=== PATIENT | male | born 1980 | race Caucasian/White ===

== ENCOUNTER 2021-09-14 12:35 | Observation (INO) | payer OTHER ==
--- OUTSIDE RECORDS SUMMARY | 2021-09-14 12:41 | XMS REPORT | Continuity of Care Document ---
:1980 Author Organization [facility] t Address [address] [place] [address] Care Team Providers Name Role Phone [facility], [facility] Primary Care Physician Un available Duyen LOGAN Attending Clinician Unavailable Doreen THAKKAR S Attending Clinician Elvin LANDA, B Attending Clinician Unavailable VIANEY Attending Clinician Unavailable Rey Blas Attending Clinician Vianey THAKKAR Attending Clinician Doctor Unassigned, Name Attending Clinician Unavailable Suraj Tamez NP Attending Clinician Suraj TAMEZ Attending Clinician Unavailable Tommy Dodson Attending Clinician Ludwin THAKKAR Attending Clinician Tommy MONTIEL Attending Clinician Unavailable Sander THAKKAR Attending Clinician SANDER Attending Clinician Unavailable VIANEY Admitting Clinician Unavailable Vianey THAKKAR Admitting Clinician Ludwin THAKKAR Admitting Clinician SANDER Admitting Clinician Unavailable Payers Payer Name Policy Type Policy Number Effective Date Expiration Date Duyen [facility] [id number] 2021 00:00:00 Problems Condition Condition Condition Status Onset Resolution Last Treating Co mments Source Name Details Category Date Date Treatment Clinician Date Hypertensi Hypertensi Disease Active U nivers ve urgency ve urgency 1-18 it y of 00:00: [address] Essential Essential Disease Active Uni vers hypertensi hypertensi 9-13 it y of on on 00:00: [place] [id number] Medical [place] Dyslipidem Dyslipidem Disease Active U nivers ia ia 9-13 ity of 00:00: [place] [facility] Coronary Coronary Disease Active Unive rs artery artery 9-13 ity of disease disease 00:00: [place] involving involving 00 [facility] coronary 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 Chest pain Chest pain Disease Active U nivers in adult in adult 05-03 ity of 00:00: [place] [facility] Obesity Obesity Disease Active Univers (BMI (BMI 3-17 ity of 30-39.9) 30-39.9) 00:00: [place] 00 Medical [place] Chest pain Chest pain Disease Active U nivers 7-08 ity of 00:00: [address] Allergies, Adverse Reactions, Alerts Allergy Allergy Status Severity Reaction(s) Onset Inactive Treating Comm ents Source Name Type Date Date Clinician NO KNOWN Drug Active Univers ALLERGIE Class ity of S [facility] Social History Social Habit Start Date Stop Date Quantity Comments Source Exposure to Not sure [facility] SARS-CoV-2 [facility] [place] [facility] (event) Branch Education 2021-09-11 2021-09-11 14 University of 00:00:00 00:00:00 [facility] Alcohol intake 2021-09-11 2021-09-11 Current [facility] 00:00:00 00:00:00 non-drinker of [facility] alcohol Branch (finding) Tobacco use and 2017-11-08 2017-11-08 Current user Univers ity of exposure 00:00:00 00:00:00 [facility] Sex Ass[birth year] At [birth year] Universit y of 00:00:00 00:00:00 [facility] Smoking Status Start Date Stop Date Source Current every day smoker 2017-11-08 00:00:00 Uni versity of [facility] Medications Ordered Filled Start Stop Current Ordering Indication Dosage Frequency Signature Comments Components Source Medication Medication Date Date Medication? Clinician (SIG) Name Name simvastatin Yes 80mg 80 mg, Univ ers (ZOCOR) 1-19 Oral, QHS, ity of tablet 80 03:00: [place] mg 00 on [facility] 09/11/21 at [place] 2100, Until Discontinu ed, Routine aspirin 81 2021- Yes [id number] 162mg Take 2 Univers mg chewable 09-12 tablets by i ty of tablet 00:00: 05:59 mouth [place] 00 :00 daily for Medical 30 days. [place] lisinopriL 2021- Yes [id number] 2.5mg Take 1 Univers 2.5 mg 09-12 tablet by ity of tablet 00:00: 05:59 mouth [place] 00 :00 daily for Medical 30 days. [place] metoprolol 2021- Yes [id number] 12.5mg Take 0.5 Univers succinate 09-12 tablets by ity of XL 25 mg 24 00:00: 05:59 [place] hr tablet 00 :00 daily for Medic al 30 days. [place] aspirin 81 2021- Yes [id number] 162mg Take 2 Univers mg chewable 09-12 tablets by i ty of tablet 00:00: 05:59 mouth [place] 00 :00 daily for Medical 30 days. [place] lisinopriL 2021- Yes [id number] 2.5mg Take 1 Univers 2.5 mg 09-12 tablet by ity of tablet 00:00: 05:59 mouth [place] 00 :00 daily for Medical 30 days. [place] metoprolol 2021- Yes [id number] 12.5mg Take 0.5 Univers succinate 09-12 tablets by ity of XL 25 mg 24 00:00: 05:59 [place] hr tablet 00 :00 daily for Medic al 30 days. [place] aspirin 81 2021- Yes [id number] 162mg Take 2 Univers mg chewable 09-12 tablets by i ty of tablet 00:00: 05:59 mouth [place] 00 :00 daily for Medical 30 days. [place] lisinopriL 2021- Yes [id number] 2.5mg Take 1 Univers 2.5 mg 09-12 tablet by ity of tablet 00:00: 05:59 mouth [place] 00 :00 daily for Medical 30 days. Branch metoprolol 2021- Yes [id number] 12.5mg Take 0.5 Univers succinate 09-12-19 tablets by ity of XL 25 mg 24 00:00: 05:59 [place] hr tablet 00 :00 daily for Medic al 30 days. Branch sulfur 2021- No [id number] 5mL 5 mL, Unive rs hexafluorid 09-11 Intravenou i ty of e microsphr 21:30: 21:30 s, ONCE, 1 [place] (LUMASON) 00 :00 dose, On Medica l injection 5 Tue Branch mL 09/11/21 at 1530, Routine
membership correspondent approving Restricted medication : BRITTANY BAUTISTA simvastatin Yes 80mg Take 80 mg Univers 80 mg 18 by mouth ity of tablet 17:07: at [place] 21 bedtime. Medical Branch simvastatin Yes 80mg Take 80 mg Univers 80 mg -18 by mouth ity of tablet 17:07: at [place] 21 bedtime. Medical Branch simvastatin Yes 80mg Take 80 mg Univers 80 mg -18 by mouth ity of tablet 17:07: at [place] 21 bedtime. Medical Branch aspirin 2021- No 325mg Take 325 Univ ers (INGRID 18 -18 mg by ity of ASPIRIN) 16:00: 00:00 mouth [place] 325 mg 14 :00 daily. Medical tablet Branch clopidogreL 2021- No 75mg Take 75 mg Univers 75 mg 18 18 by mouth ity of tablet 16:00: 00:00 daily. [place] 14 :00 Medical Branch lisinopriL 2021- No 2.5mg Take 2.5 U nivers 2.5 mg -18 -18 mg by ity of tablet 16:00: 00:00 mouth [place] 14 :00 daily. Medical Branch metoprolol 2021- No 12.5mg Take 12.5 Univers succinate -18 -18 mg by ity of XL 25 mg 24 16:00: 00:00 [place] hr tablet 14 :00 daily. Medical Branch metoprolol Yes 12.5mg 12.5 mg, U nivers succinate 18 Oral, ity of XL (TOPROL 15:00: DAILY, [place] XL) tablet 00 First dose Med ical 12.5 mg on [facility] 09/11/21 at 0900, Until Discontinu ed, Routine lisinopriL 2021-0 Yes 2.5mg 2.5 mg, Uni vers (PRINIVIL,Z 18 Oral, ity of ESTRIL) 15:00: DAILY, [place] tablet 2.5 00 First dose Med ical mg on [facility] 09/11/21 at 0900, Until Discontinu ed, Routine clopidogreL 2021-0 Yes 75mg 75 mg, Univ ers (PLAVIX) 18 Oral, ity of tablet 75 15:00: DAILY, [place] mg 00 First dose Medical on [facility] 09/11/21 at 0900, Until Discontinu ed, Routine enoxaparin 2021-0 Yes 40mg 40 mg, Unive rs (LOVENOX) 09-11 Subcutaneo ity of injection 15:00: us, DAILY, [place] 40 mg 00 First dose Medical on [facility] 09/11/21 at 0900, Until Discontinu ed, Routine aspirin 2021-0 Yes 162mg 162 mg, Univer s chewable 09-11 Oral, ity of tablet 162 15:00: DAILY, [place] mg 00 First dose Medical on [facility] 09/11/21 at 0900, Until Discontinu ed, Routine cyclobenzap 2021-0 Yes 10mg 10 mg, Univ ers rine 09-11 Oral, ity of (FLEXERIL) 08:50: TIDPRN, [place] tablet 10 48 Starting Medica l mg on [facility] 09/11/21 at 0250, Until Discontinu ed, Routine, Muscle Spasms morpHINE 2021-0 2021- Yes 4mg 4 mg, Slow Un ana injection 4 09-1119 IV Push, ity of mg 08:47: 05:47 Q4HPRN, [place] 48 :57 Starting Medical on [facility] 09/11/21 at 0247, Until Fri09/11/21 at 2347, Routine, Pain (scale 7-10), Chest pain nitroglycer 2021-0 Yes .4mg 0.4 mg, Uni vers in 09-11 Sublingual ity of (NITROSTAT) 05:50: , Q5MIN [place] sublingual 28 PRN, Medical tablet 0.4 Starting Branc h mg on Fri09/10/21 at 2350, Until Discontinu ed, Routine, Chest pain ondansetron Yes 4mg 4 mg, Slow Univers (ZOFRAN 09-11 IV Push, ity of (PF)) 05:49: Q6HPRN, [place] injection 4 12 Starting Medi hakan mg on Fri Branch 09/10/21 at 2349, Until Discontinu ed, Routine, Nausea and Vomiting (N/V) traMADoL 2021- Yes 50mg 50 mg, Univer s (ULTRAM) 09-11 Oral, ity of tablet 50 05:48: 05:47 Q8HPRN, [place] mg 54 :54 Starting Medical on Fri Branch 09/10/21 at 2348, Until 09/12/21 at 2347, Routine, Pain (scale 4-6) acetaminoph Yes 650mg 650 mg, Un ana en 09-11 Oral, ity of (TYLENOL) 05:48: Q6HPRN, [place] tablet 650 53 Starting Medic al mg on Fri Branch 09/10/21 at 2348, Until Discontinu ed, Routine, Pain (scale 1-3) iopamidol 0 2021- No 100mL 100 mL, Uni vers (ISOVUE 09-11 Intravenou ity o f 370-500 mL) 03:09: 03:09 s, ONCE, 1 [place] injection 00 :00 dose, On Medica l 100 mL [facility] Branch 09/10/21 at 2130, Routine morpHINE 2021- No 4mg 4 mg, Slow Un ana injection 4 09-11 IV Push, ity of mg 00:30: 23:34 ONCE, 1 [place] 00 :00 dose, On Medical [facility] Branch 09/10/21 at 1830, STAT nitroglycer Yes [id number] .4mg Place 1 Univers in 0.4 mg 09-11 tablet ity of sublingual 00:00: under the [place] tablet 00 tongue Medical every 5 Branch (five) minutes as needed for Chest pain. nitroglycer 2022-[id number] 1 Univers in 0.4 mg 1-18 tablet ity of sublingual 00:00: under the [place] tablet 00 tongue Medical every 5 Branch (five) minutes as needed for Chest pain. nitroglycer 2021-[id number] 1 Univers in 0.4 mg 1-18 tablet ity of sublingual 00:00: under the [place] tablet 00 tongue Medical every 5 Branch (five) minutes as needed for Chest pain. clopidogreL 2021- Yes [id number] 75mg Take 1 Univers 75 mg 1-18 -18 tablet by ity of tablet 00:00: 05:59 mouth [place] 00 :00 daily for Medical 30 days. Branch clopidogreL 2021- Yes [id number] 75mg Take 1 Univers 75 mg 1-18 -18 tablet by ity of tablet 00:00: 05:59 mouth [place] 00 :00 daily for Medical 30 days. Branch clopidogreL 2021- Yes [id number] 75mg Take 1 Univers 75 mg 1-18 -18 tablet by ity of tablet 00:00: 05:59 mouth [place] 00 :00 daily for Medical 30 days. Branch NaCl 0.9% 2021- No 1000mL at 999 Uni vers (NS) bolus 09-10 mL/hr, ity of infusion 23:45: 04:38 1,000 mL, [place] as 1,000 mL 00 :00 IV Medical Infusion, Branch ONCE, 1 dose, On Fri09/10/21 at 1745, RAJ nitroglycer 2021- No .4mg 0.4 mg, Un ana in 09-10 Sublingual ity of (NITROSTAT) 23:28: 06:25 , Q5MIN [place] sublingual 00 :50 PRN, 3 Medical tablet 0.4 doses, Branch mg Starting on Fri09/10/21 at 1728, Until Fri09/11/21 at 0025, RAJ, Chest pain dexamethaso 2020- No 10mg 10 mg, IV Univers ne 08-26 Push, ity of (DECADRON 03:00: 02:03 ONCE, 1 [place] PHOSPHATE) 00 :00 dose, Fri Medi hakan injection 08/25/20 at Bran h 10 mg 2100, STAT NaCl 0.9% 2020- No 1000mL at 1,000 U nivers (NS) IV 08-26 mL/hr, ity of infusion 03:00: 04:06 Intravenou [place] 1,000 mL 00 :00 s, ONCE, 1 Medic al dose, Fri Branch 08/25/20 at 2100, RAJ diphenhydrA 2020- No 25mg 25 mg, Uni vers MINE 08-26 Slow IV ity of (BENADRYL) 03:00: 02:03 Push, [place] injection 00 :00 ONCE, 1 Medical 25 mg dose, Fri Branch 08/25/20 at 2100, STAT metoclopram 2020- No 10mg 10 mg, Uni vers nicole HCl 08-26 Slow IV ity of (REGLAN) 03:00: 02:03 Push, [place] injection 00 :00 ONCE, 1 Medical 10 mg dose, Fri Branch 08/25/20 at 2100, RAJ ketorolac 2020- No 30mg 30 mg, Unive rs (TORADOL) 08-26 Slow IV ity of injection 03:00: 02:02 Push, [place] 30 mg 00 :00 ONCE, 1 Medical dose, Fri Branch 08/25/20 at 2100, Routine
membership correspondent approving Restricted medication : LAMONT TAMEZ methylPREDN Yes [id number] Take by [place] [id number] 08-26 mouth ity of mg tablets 00:00: [place]-INSTRU [place] 00 CTIONS. Medical follow Branch package directions methylPREDN Yes [id number] Take by [place] [id number] 08-26 mouth ity of mg tablets 00:00: [place]-INSTRU [place] 00 CTIONS. Medical follow Branch package directions methylPREDN 2020-0 202- No [id number] Take by [place] [id number] 08-2618 mouth ity of mg tablets 00:00: 00:00 SEE-INSTRU [place] 00 :00 CTIONS. Medical follow Branch package directions butalbital- Yes [id number] 1{tbl} Take [facility] acetaminoph 08-25 tablet by ity of en-caff 00:00: mouth [place] 50-325-40 00 every 4 Medical mg tablet (four) Branch hours as needed for Pain (scale 4-6). butalbital- Yes [id number] 1{tbl} Take 1 Univers acetaminoph 1-01 tablet by ity of en-caff 00:00: mouth [place] 50-325-40 00 every 4 Medical mg tablet (four) Branch hours as needed for Pain (scale 4-6). butalbital- 2021- No [id number] 1{tbl} Take 1 Univers acetaminoph 1-01 -18 tablet by it y of en-caff 00:00: 00:00 mouth [place] 50-325-40 00 :00 every 4 Medical mg tablet (four) Branch hours as needed for Pain (scale 4-6). valACYclovi 2020- No [id number] 1g Take 1 Univers r 1 gram 08-25 tablet by ity o f tablet 00:00: 05:59 mouth 2 [place] 00 :00 (two) Medical times Branch daily for 7 days. METOPROLOL 2019-0 2020- No Take by Un ana TARTRATE 05-04 mouth. ity of ORAL 21:35: 00:00 [place] 46 :00 Medical Branch nitroglycer 2019- 2020- No .4mg Place 0.4 Univers in 05-0410 mg under ity of (NITROSTAT) 21:35: 00:00 the tongue [place] 0.4 mg 46 :00 every 5 Medical sublingual (five) Branch tablet minutes as needed for Chest pain. metoprolol 2019- 2020- No 12.5mg Take 12.5 Univers succinate 05-04-10 mg by ity of XL (TOPROL 21:35: 00:00 mouth with [place] XL) 25 mg 46 :00 evening Medical 24 hr meal. Branch tablet ezetimibe 2019-2019- No 10mg Take 10 mg U nivers (ZETIA) 10 05-0410 by mouth ity of mg tablet 21:35: 00:00 with [place] 46 :00 evening Medical meal. Branch lisinopril 2019- No 5mg Take 5 mg U nivers 5 mg tablet 05-04 by mouth ity of 21:35: 00:00 with [place] 46 :00 evening Medical meal. Branch EVOLOCUMAB 2020-0 2020- No inject Univ ers (REPATHA 05-04 under the ity o f PUSHTRONEX 21:35: 00:00 skin. [facility]) 46 :00 Indication Medical s: TAKES Branch BIWEEKLY-N OT SURE OF THE DOSE aspirin 81 2020-0 2020- No 81mg Take 81 mg Univers mg chewable 05-04 by mouth ity of tablet 21:35: 00:00 with [place] 46 :00 evening Medical meal. Branch tc 2020-0 2020- No 42.7mCi 42.7 Univers 99m-tetrofo 05-04 millicurie i ty of [facility] 19:45: 18:40 , [place] ([facility]) 00 :00 Intravenou Medi hakan injection s, ONCE, 1 Bran ch 42.7 dose, [facility] 05/[facility]/20 at 1445, Routine Regadenoson 2020-0 2020- No PRN, Unive rs (LEXISCAN) 05-04 Starting ity of injection 18:42: 18:42 [facility] 05 :05 05/04/20 at Medical 1342, Branch Until [facility] 05/04/20 at 1342, Routine tc 2020-0 2020- No 16.5mCi 16.5 Univers 99m-tetrofo 05-04 millicurie i ty of [facility] 18:15: 17:00 , [place] ([facility]) 00 :00 Intravenou Medi hakan injection s, ONCE, 1 Bran ch 16.5 dose, [facility] 05/04/20 at 1315, Routine enoxaparin 2020-0 Yes 40mg 40 mg, Unive rs (LOVENOX) 05-04 Subcutaneo ity of injection 14:00: us, DAILY, [place] 40 mg 00 First dose Medical on [facility] 05/04/20 at 0900, Until Discontinu ed, Routine aspirin 2020-0 Yes 81mg 81 mg, Univers chewable 05-04 Oral, QAM ity of tablet 81 13:00: WITH [place] mg 00 BREAKFAST, Medical First dose Branch on [facility] 05/04/20 at 0800, Until Discontinu ed, Routine docusate 2020-0 Yes 100mg 100 mg, Unive rs (COLACE) 9- Oral, BID, ity o f capsule 100 13:00: First dose [place] mg 00 on [facility] 05/04/20 at Branch 0800, Until Discontinu ed, Routine aspirin 2020-0 2020- No 325mg 325 mg, Unive rs E.C. 05-04 Oral, ity of (ECOTRIN) 06:00: 05:18 ONCE, 1 [place] tablet 325 00 :00 dose, [facility] Medi hakan mg 05/04/20 at Branch 0100, RAJ atorvastati 2020-0 Yes 40mg 40 mg, Univ ers n (LIPITOR) 9-10 Oral, QHS, it y of tablet 40 05:00: First dose [place] mg 00 on [facility] 05/04/20 at Branch 0000, Until Discontinu ed, Routine clopidogreL 2020-0 Yes 75mg 75 mg, Univ ers (PLAVIX) - Oral, ity of tablet 75 05:00: DAILY, [place] mg 00 First dose Medical on [facility] 05/04/20 at 0000, Until Discontinu ed, Routine metoprolol 2020-0 2020- No 12.5mg 12.5 mg, Univers succinate 05-04 Oral, QPM, ity of XL (TOPROL 05:00: 13:56 First dose [place] XL) tablet 00 :12 on [facility] 12.5 mg 05/04/20 at Branch 0000, Until Discontinu ed, Routine traMADoL 2020-0 Yes 50mg 50 mg, Univers (ULTRAM) -10 Oral, ity of tablet 50 04:51: Q8HPRN, [place] mg 13 Starting Medical 05/03/20 Branch at 2351, Until Discontinu ed, Routine, Pain (scale 4-6) nitroglycer 2020-0 Yes .4mg 0.4 mg, Uni vers in 05-04 Sublingual ity of (NITROSTAT) 04:51: , Q5MIN [place] sublingual 09 PRN, Medical tablet 0.4 Starting Branc h mg 05/03/20 at 2351, Until Discontinu ed, Routine, Chest pain ondansetron 2020-0 Yes 4mg 4 mg, Slow Univers (ZOFRAN 9-10 IV Push, ity of (PF)) 04:49: Q6HPRN, [place] injection 4 31 Starting Medi hakan mg Fri05/03/20 Branch at 2349, Until Discontinu ed, Routine, Nausea and Vomiting (N/V) ketorolac 2019-2019- No 15mg 15 mg, Unive rs (TORADOL) 05-04 09-10 Slow IV ity of injection 02:15: 01:10 Push, [place] 15 mg 00 :00 ONCE, 1 Medical dose, Fri Branch 05/03/20 at 2115, RAJ
Fa culty member approving Restricted medication : MONTIELAMAURY R nitroglycer 2019-[id number] 1 Univers in 0.4 mg 9-10 tablet ity of sublingual 00:00: under the [place] tablet 00 tongue Medical every 5 Branch (five) minutes as needed for Chest pain. nitroglycer 2020-[id number] 1 Univers in 0.4 mg 9-10 tablet ity of sublingual 00:00: under the [place] tablet 00 tongue Medical every 5 Branch (five) minutes as needed for Chest pain. nitroglycer 2020-[id number] 1 Univers in 0.4 mg 9-10 tablet ity of sublingual 00:00: under the [place] tablet 00 tongue Medical every 5 Branch (five) minutes as needed for Chest pain. nitroglycer 2019-2021- No [id number] .4mg Place 1 Univers in 0.4 mg 9-10 01-18 tablet ity of sublingual 00:00: 00:00 under the [place] tablet 00 :00 tongue Medical every 5 Branch (five) minutes as needed for Chest pain. aspirin 81 2019- 2020- No [id number] 81mg Take 1 Univers mg chewable 9-10 10-11 tablet by it y of tablet 00:00: 04:59 mouth [place] 00 :00 daily for Medical 30 days. Branch clopidogreL 2019-0 2020- No [id number] 75mg Take 1 Univers (PLAVIX) 75 9-10 10-11 tablet by it y of mg tablet 00:00: 04:59 mouth [place] 00 :00 daily for Medical 30 days. Branch metoprolol 2019-0 2020- No [id number] 25mg Take 1 Univers tartrate 25 9-10 10-11 tablet by it y of mg tablet 00:00: 04:59 mouth 2 [place] 00 :00 (two) Medical times Branch daily for 30 days. lisinopriL 2019- 2020- No [id number] 5mg Take 1 Univers 5 mg tablet 9-10 10-11 tablet by it y of 00:00: 04:59 mouth with [place] 00 :00 evening Medical meal for Branch 30 days. ezetimibe 2019- 2020- No [id number] 10mg Take 1 U nivers (ZETIA) 10 9-10 10-11 tablet by ity of mg tablet 00:00: 04:59 mouth [place] 00 :00 daily for Medical 30 days. [place] atorvastati 2019- 2020- No [id number] 40mg Take 1 Univers n 40 mg 9-10 10-11 tablet by ity of tablet 00:00: 04:59 mouth at [place] 00 :00 bedtime Medical for 30 Branch days. evolocumab 2019- 2020- No 140mg inject 140 Univers (REPATHA 9-10 09-26 mg under ity of PUSHTRONEX) 00:00: 04:59 the skin [place] 420 mg/3.5 00 :00 every 14 Medic al mL Injt (fourteen) Branch days for 2 doses. Indication s: TAKES BIWEEKLY-N OT SURE OF THE DOSE aspirin 2019- Yes 243mg 243 mg, Univer s chewable 5-30 Oral, ity of tablet 243 14:00: DAILY, [place] mg 00 First dose Medical on Sat [place] 01/22/20 at 0900, Until Discontinu ed, Routine NaCl 0.9% 2019- 2020- No 1000mL at 999 Uni vers (NS) IV 01-20 05-29 mL/hr, ity of infusion 16:00: 15:08 Intravenou [place] 1,000 mL 00 :00 s, ONCE, 1 Medic al dose, Fri Branch 01/21/20 at 1100, Routine ondansetron 2019- 2020- No 4mg 4 mg, Slow Univers (ZOFRAN 01-20 05-30 IV Push, ity of (PF)) 15:15: 03:14 ONCE, 1 [place] injection 4 00 :00 dose, Fri Med ical mg 01/21/20 at Branch 1015, RAJ morpHINE 2019- 2020- No 4mg 4 mg, Slow Un ana injection 4 01-20 05-30 IV Push, ity of mg 15:15: 03:14 ONCE, 1 [place] 00 :00 dose, Fri Medical 01/21/20 at Branch 1015, STAT aspirin 2019- 2020- No 243mg 243 mg, Unive rs chewable 01-20 05-30 Oral, ity of tablet 243 15:15: 03:14 ONCE, 1 [place] as mg 00 :00 dose, Fri Medical 01/21/20 at Branch 1015, Routine nitroglycer 2017-[address] 0.4 U nivers in 3-18 mg under ity of (NITROSTAT) 18:46: the tongue [place] 0.4 mg 37 every 5 Medical sublingual (five) Branch tablet minutes as needed for Chest pain. metoprolol Yes 12.5mg Take 12.5 Univers succinate 3-18 mg by ity of XL (TOPROL 18:46: mouth with [place] XL) 25 mg 37 evening Medical 24 hr meal. Branch tablet ezetimibe 0 Yes 10mg Take 10 mg Un ana (ZETIA) 10 3-18 by mouth ity o f mg tablet 18:46: with [place] [id number] evening Medical meal. Branch lisinopril 0 Yes 5mg Take 5 mg Un ana 5 mg tablet 3-18 by mouth ity of 18:46: with [place] [id number] evening Medical meal. Branch EVOLOCUMAB 0 Yes inject Unive rs (REPATHA 3-18 under the ity of PUSHTRONEX 18:46: skin. [facility]) 37 Indication Medical s: TAKES Branch BIWEEKLY-N OT SURE OF THE DOSE aspirin 81 2017-0 Yes 81mg Take 81 mg U nivers mg chewable 3-18 by mouth ity of tablet 18:46: with [place] [id number] evening Medical meal. Branch METOPROLOL 0 Yes Take by Uni vers TARTRATE 3-18 mouth. ity of ORAL 18:46: [place] [id number] Medical Branch ondansetron 0 Yes 4mg Take 1 Univ ers 4 mg 1-05 tablet by ity of disintegrat 00:00: mouth [place] ing tablet 00 every 8 Medica l (eight) Branch hours as needed for Nausea and Vomiting (N/V) for up to 10 doses. ondansetron 2017-0 2020- No 4mg Take 1 Uni vers 4 mg 1-05 09-10 tablet by ity of disintegrat 00:00: 00:00 mouth [place] ing tablet 00 :00 every 8 Medica l (eight) Branch hours as needed for Nausea and Vomiting (N/V) for up to 10 doses. Immunizations Ordered Filled Immunization Date Status Comments [facility] e Immunization Name Name Pneumococcal 2017-11-19 Completed [place] o f Polysaccharide, 00:00:00 [place] Med ical PPSV23 (PNEUMOVAX) Branch [facility] 2017-11-19 Completed University of 00:00:00 [facility] Pneumococcal 2017-11-19 Completed [place] o f Polysaccharide, 00:00:00 [place] Med ical PPSV23 (PNEUMOVAX) Branch AP 2017-11-19 Completed University of 00:00:00 [facility] Pneumococcal 2017-11-19 Completed [place] o f Polysaccharide, 00:00:00 [place] Med ical PPSV23 (PNEUMOVAX) Branch [facility] 2017-11-19 Completed University of 00:00:00 [facility] Pneumococcal 2017-11-19 Completed [place] o f Polysaccharide, 00:00:00 [place] Med ical PPSV23 (PNEUMOVAX) Branch [facility] 2017-11-19 Completed University of 00:00:00 [facility] Pneumococcal 2017-11-19 Completed [place] o f Polysaccharide, 00:00:00 [place] Med ical PPSV23 (PNEUMOVAX) Branch AP 2017-11-19 Completed University of 00:00:00 [facility] Pneumococcal 2017-11-19 Completed [place] o f Polysaccharide, 00:00:00 [place] Med ical PPSV23 (PNEUMOVAX) Branch [facility] 2017-11-19 Completed University of 00:00:00 [facility] Vital Signs Vital Name Observation Time Observation Value Comments Source Systolic blood 2021-09-12 05:42:00 161 mm[facility]Hg[facility] 2021-09-12 05:42:00 94 [facility]Hg[facility] 2021-09-12 05:42:00 92 /min [facility] Body temperature 2021-09-12 05:42:00 37.06 [facility] Respiratory rate 2021-09-12 05:42:00 18 /min [facility] Body height 2021-09-12 05:42:00 190.5 cm [facility] Body weight 2021-09-12 05:42:00 113.399 kg [facility] [place] [facility] BMI 2021-09-12 05:42:00 31.25 kg/m2 [facility] [place] [facility] Oxygen saturation in 2021-09-12 05:42:00 99 /min [facility] Arterial blood by [facility] Pulse oximetry Branch Systolic blood 2021-09-11 18:04:00 112 mm[Hg] [facility] Diastolic blood 2021-09-11 18:04:00 63 mm[Hg] [facility] Heart rate 2021-09-11 18:04:00 71 /min [facility] [place] [facility] Body temperature 2021-09-11 18:04:00 36.83 Karena [facility] [place] [facility] Respiratory rate 2021-09-11 18:04:00 18 /min [facility] [place] [facility] Oxygen saturation in 2021-09-11 18:04:00 97 /min [facility] Arterial blood by [facility] Pulse oximetry Branch Body height 2021-09-11 06:05:00 190.5 cm [facility] Body weight 2021-09-11 06:05:00 117.482 kg [facility] [place] [facility] BMI 2021-09-11 06:05:00 32.37 kg/m2 [facility] Systolic blood 2020-08-26 03:19:00 108 mm[Hg] [facility] Diastolic blood 2020-08-26 03:19:00 72 mm[Hg] [facility] Heart rate 2020-08-26 03:19:00 83 /min [facility] Respiratory rate 2020-08-26 03:19:00 16 /min [facility] [place] [facility] Oxygen saturation in 2020-08-26 03:19:00 99 /min [facility] Arterial blood by [facility] Pulse oximetry Branch Body temperature 2020-08-26 00:26:00 37.06 Karena [facility] Body weight 2020-08-26 00:26:00 106.142 kg [facility] BMI 2020-08-26 00:26:00 29.25 kg/m2 [facility] Systolic blood 2020-05-04 21:15:00 129 mm[Hg] [facility] [place] [facility] Diastolic blood 2020-05-04 21:15:00 69 mm[Hg] [facility] Heart rate 2020-05-04 21:15:00 71 /min [facility] [place] [facility] Body temperature 2020-05-04 21:15:00 36.56 Karena [facility] [place] [facility] Respiratory rate 2020-05-04 21:15:00 18 /min [facility] [place] [facility] Oxygen saturation in 2020-05-04 21:15:00 97 /min [facility] Arterial blood by [facility] hakan Pulse oximetry Branch Body height 2020-05-04 00:07:00 190.5 cm [facility] [place] [facility] Body weight 2020-05-04 00:07:00 114.17 kg [facility] BMI 2020-05-04 00:07:00 31.46 kg/m2 [facility] [place] [facility] Systolic blood 2020-01-21 14:00:00 159 mm[Hg] [facility] Diastolic blood 2020-01-21 14:00:00 99 mm[Hg] [facility] Heart rate 2020-01-21 14:00:00 89 /min [facility] [place] [facility] Respiratory rate 2020-01-21 14:00:00 21 /min [facility] [place] [facility] Oxygen saturation in 2020-01-21 14:00:00 97 /min [facility] Arterial blood by [facility] Pulse oximetry Branch Body temperature 2020-01-21 13:59:00 36.83 Karena [facility] [place] [facility] Body height 2020-01-21 13:59:00 190.5 cm [facility] [place] [facility] Body weight 2020-01-21 13:59:00 124.739 kg [facility] [place] [facility] BMI 2020-01-21 13:59:00 34.37 kg/m2 [facility] [place] [facility] Procedures Procedure Date / Time Performing Clinician Source Performed NOTICE OF PRIVACY 2021-09-12 05:38:53 Doctor Unassigned, No [facility] [place] [facility] Name Medical Branch CONSENT/REFUSAL FOR 2021-09-12 05:29:17 Doctor [facility]igned, No [facility] [place] [facility] Name Medical Branch TROPONIN I 2021-09-11 16:33[facility] 2021[facility]11 10:[facility] 2021-09-11 10:32[facility] K, CL, CO2, Medical Branch GLUCOSE, BUN, CREATININE, CA) LIPID PANEL 2021-09-11 10:32:00 [facility] ([id number])(TOTAL Medical Branch CHOLESTEROL, TRIGLYCERIDES, HDL) CBC WITH DIFF 2021-09-11 10:32[facility]ULMONARY 2021-09-11 03:18:[address] [facility] ANGIOGRAM Medical Branch XR CHEST 1 VW 2021-09-10 23:08:25 Britta Pressley [facility] TROPONIN I 2021-09-10 22:53:00 Britta Pressley [facility] COMP. METABOLIC PANEL 2021-09-10 22:53:00 Britta Pressley [facility] ([id number]) Medical Branch CBC WITH DIFF 2021-09-10 22:53:00 Britta Pressley [facility] PROTHROMBIN TIME / INR 2021-09-10 22:53:00 Britta Pressley [facility] D-DIMER 2021-09-10 22:53:00 Britta Pressley [facility] N-TERMINAL PRO-BNP 2021-09-10 22:53:00 Britta Pressley [facility] COVID-19 (ID NOW RAPID 2021-09-10 22:53:00 Britta Pressley [facility] TESTING) Medical Branch NOTICE OF PRIVACY 2021-09-10 22:33:32 Doctor Unassigned, No Univ [facility] PRACTICES Name Medical Branch CONSENT/REFUSAL FOR 2021-09-10 22:33:21 [facility] CT HEAD WO CONTRAST 2020-08-26 01:22:12 Lamont Tamez [facility] NOTICE OF PRIVACY 2020-08-26 00:20:03 Doctor Unassigned, No [facility] PRACTICES Name Medical Branch CONSENT/REFUSAL FOR 2020-08-26 00:19:43 Doctor Unassigned, No [facility] [place] [facility] Name Medical Branch NM MYOCARDIUM PERFUSION 2020-05-04 19:45:08 Sangeetha Nelson [facility] STRESS AND REST [facility] Branch TROPONIN I 2020-05-04 08:47:00 [facility] TROPONIN I 2020-05-04 05:22:00 [facility] XR CHEST 1 VW 2020-05-04 00:57:20 Amaury Montiel [facility] PHOSPHORUS 2020-05-04 00:30:00 [facility] LIPASE 2020-05-04 00:30:00 Amaury Montiel [facility] MAGNESIUM 2020-05-04 00:30:00 [facility] TROPONIN I 2020-05-04 00:30:00 Amaury Montiel [facility] THYROID STIMULATING 2020-05-04 00:30:[address] [facility] HORMONE [facility] Branch COMP. METABOLIC PANEL 2020-05-04 00:30:00 Amaury Montiel [facility] ([id number]) Medical Branch LIPID PANEL 2020-05-04 00:30:00 Amaury Montiel [facility] ([id number])(TOTAL Medical Branch CHOLESTEROL, TRIGLYCERIDES, HDL) CBC WITH DIFF 2020-05-04 00:30:00 Amaury Montiel [facility] GLYCOSYLATED HEMOGLOBIN 2020-05-04 00:30:00 Ludwin [facility] (A1C) Medical Ruso PROTHROMBIN TIME / INR 2020-05-04 00:30:00 Amaury Montiel [facility] D-DIMER 2020-05-04 00:30:00 Amaury Montiel [facility] ACTIVATED PARTIAL 2020-05-04 00:30:00 Amaury Montiel [facility] THRMPLAS ERNESTINE [facility] N-TERMINAL PRO-BNP 2020-05-04 00:30:00 Amaury Montiel [facility] COVID-19 (ID NOW RAPID 2020-05-04 00:30:00 Amaury Montiel [facility] TESTING) Medical Branch EKG-12 LEAD 2020-05-04 00:27:02 Amaury Montiel [facility] EKG-12 LEAD 2020-05-04 00:19:20 Mica Logan [facility] CONSENT/REFUSAL FOR 2020-05-03 23:59:07 Doctor Unassigned, No [facility] DIAGNOSIS AND TREATMENT Name Medical Branch XR CHEST 1 VW 2020-01-21 14:22:12 Sander Toma [facility] TROPONIN I 2020-01-21 14:05:00 Sander Toma [facility] HEPATIC FUNCTION PANEL 2020-01-21 14:05:00 Toma Boucher [facility] ([id number]) (ALB,T.PRO,BILI [facility] Branch T,BU/BC,ALT,AST,ALK PHOS) BASIC METABOLIC PANEL 2020-01-21 14:05:00 Toma Boucher [facility] (NA, K, CL, CO2, Medical Branch GLUCOSE, BUN, CREATININE, CA) CBC WITH DIFFERENTIAL 2020-01-21 14:05:00 Sander Toma [facility] PROTHROMBIN TIME / INR 2020-01-21 14:05:00 Toma Boucher [facility] ACTIVATED PARTIAL 2020-01-21 14:05:00 Toma Boucher [facility] THRMPLAS ERNESTINE [facility] N-TERMINAL PRO-BNP 2020-01-21 14:05:00 Toma Boucher [facility] COVID-19 (PCR MOLECULAR 2020-01-21 14:05:00 Toma Boucher [facility] TESTING) Medical Branch EKG-12 LEAD 2020-01-21 13:59:45 Sander Toma [facility] NOTICE OF PRIVACY 2020-01-21 13:52:22 Doctor Unassigned, No [facility] PRACTICES Name Medical Branch Encounters Start End Encounter Admission Attending Care Care Encounter Source Date/Time Date/Time Type Type Clinicians Facility Department ID 2021-09-11 2021-09-12 Emergency X DOREEN [facility] ERT [id number] Univers 23:46:00 02:00:00 MICA ruiz [facility] 2021-09-11 2021-09-12 Emergency Doreen [facility] [id number] Univers 23:46:00 02:00:00 Mica SANCHEZUMESH [id number] ity of [facility] [place] [id number] [facility] 084 Branch 2021-09-12 2021-09-12 Transition SUE Oconnor [id number] Univers 00:00:00 00:00:00 of Care Luz Maria ORDAZ [id number] [place] [id number] [facility] 403 Branch 2021-09-10 2021-09-11 [id number] Univers 16:45:00 17:07:00 ORQUIDEA ruiz [facility] 2021-09-10 2021-09-11 Emergency LynseyDavid francoiselvia Le [facility] 1.2.840 .114 [id number] Univers 16:45:00 17:07:00 Chacortanavid Orquidea BIA [id number] ity of [facility] 4.2.7.2.686 [facility] [phone] [facility] 081 Branch 2021-09-10 2021-09-10 Orders Doctor CHOU [id number] Univers 00:00:00 00:00:00 Only Unassigned, KYLE [id number] ity of [place] [facility] 4.2.7.2.686 Kenny as [phone] [facility] 009 Branch 2020-08-25 2020-08-25 Emergency Dashawn [facility] [id number] Univers 18:28:00 21:42:00 Lamont Alan [id number] ity of [place] [id number] [facility] 084 Branch 2020-08-25 2020-08-25 Emergency X DASHAWN [facility] ERT [id number] Univers 18:28:00 18:28:00 LAMONT ruiz [facility] 2020-05-03 2020-05-04 Emergency Amaury Montiel [facility] 1.2.840. [id number] Univers 19:12:00 17:11:00 Yulia Mascorro [place] [id number] ity [facility] [id number] [facility] [id number] [address] 2020-05-03 2020-05-03 Emergency X TIANARUST ERT [id number] Univers 19:12:00 19:12:00 AMAURY ruiz [facility] 2020-01-21 2020-01-21 Emergency SanderRUST [id number] Univers 08:53:47 10:11:00 Toma [place] 350.1.13.10 i ty [facility] 4.2.7.2.686 [facility] [id number] [address] 2020-01-21 2020-01-21 Emergency X SANDERRUST ERT [id number] Univers 08:53:47 10:11:00 TOMA [facility] Results Test Description Test Time Test Comments Results Result Comments Source Troponin I 2021-09-11 17:51:23 Test Item Value Reference Range Interpretation Comme nts TROPONIN I (test code = 0.006 ng/mL See_Comment [Au tomated message] The [id number]) system which ge nerated this result tra nsmitted reference range : <=0.034. The reference r marco was not used to int erpret this result as normal/abnormal . JAMES (test code = JAMES) Reference (Normal) Range (defined by the 99th percentile reference limit): <= 0.034 ng/mL Note: Cardiac troponin begins to rise 3-4 hours after the onset of ischemia. Repeat in 4-6 hours if the sample was drawn within 3-4 hours of the onset of the symptom and found normal. Diagnosis of myocardial injury is made with acute changes in cTn concentrations with at least one serial sample above the 99th percentile upper reference limit (URL), taken together with the patient's clinical presentation. Biotin has been reported to cause a negative bias, interpret results relative to patient's use of biotin. Lab Interpretation Normal (test code = 95018-9) [facility] [id number] 12:51:15 Test Item Value Reference Interpretation Comments Range TROPONIN I (test 0.009 ng/mL See_Comment [Automated code = 7350804857) message] The system which generated this result transmitted reference range : <=0.034. The reference range was not used to interpret this result as normal/abnormal . JAMES (test code = Reference (Normal) JAMES) Range (defined by the 99th percentile reference limit): <= 0.034 ng/mL Note: Cardiac troponin begins to rise 3-4 hours after the onset of ischemia. Repeat in 4-6 hours if the sample was drawn within 3-4 hours of the onset of the symptom and found normal. Diagnosis of myocardial injury is made with acute changes in cTn concentrations with at least one serial sample above the 99th percentile upper reference limit (URL), taken together with the patient's clinical presentation. Biotin has been reported to cause a negative bias, interpret results relative to patient's use of biotin. Lab Interpretation Normal (test code = 05563-8) [facility] (NA, K, CL, CO2, GLUCOSE, BUN, CREATININE, CA)2021-09-11 12:45:12 Test Item Value Reference Range Interpretation Comments NA (test code = 138 mmol/L 135-145 8492511410) K (test code = 3.7 mmol/L 3.5-5.0 1622259680) CL (test code = 105 mmol/L 98-108 0002459896) CO2 TOTAL (test code = 30 mmol/L 23-31 2836080589) AGAP (test code = 2-16 4577744128) BUN (test code = 9 mg/dL 7-23 6564938324) GLUCOSE (test code = 93 mg/dL 70-110 9082152381) CREATININE (test code = 0.69 mg/dL 0.60-1.25 9714063645) CALCIUM (test code = 8.3 mg/dL 8.6-10.6 L 8170236939) eGFR (test code = mL/min/1.73m2 3194651353) JAMES (test code = JAMES) Association of Glomerular Filtration Rate (GFR) and Staging of Kidney Disease* + --+ --+ ------+| GFR (mL/min/1.73 m2) ?| With Kidney Damage ?| ?Without Kidney Damage+ --------+ --------+ +| ?>90 ?| ?Stage one ?| ? Normal ?+ ---+ ---+ -------+| ?60-89 ?| ?Stage two ?| ? Decreased GFR ? + --+ --+ ------+| ?30-59 ?| ?Stage three ?| ? Stage three ? + --+ --+ ------+| ?15-29 ?| ?Stage four ? | ? Stage four ?+ ---+ ---+ -------+| ?<15 (or dialysis) ? ?| ?Stage five ? | ? Stage five ?+ ---+ ---+ -------+ *Each stage assumes the associated GFR level has been in effect for at least three months. ?Stages 1 to 5, with or without kidney disease, indicate chronic kidney disease. Notes: Determination of stages one and two (with eGFR >59mL/min/1.73 m2) requires estimation of kidney damage for at least three months as defined by structural or functional abnormalities of the kidney, manifested by either:Pathological abnormalities or Markers of kidney damage (including abnormalities in the composition of the blood or urine or abnormalities in imaging tests). Lab Interpretation Abnormal (test code = 69503-9) [facility] (Total Cholesterol, Triglycerides, HDL)2021-09-11 12:45:12 Test Item Value Reference Range Interpretation Comments CHOL (test code = 167 mg/dL 120-200 5943716786) HDL (test code = 24 mg/dL >40 L 1504992181) HDLC RATIO (test code = See_Comment H [Au tomated message] 7776346393) The system [employer] generated this result transmit nia reference range : <=5.0. The refe rence range was not u sed to interpret th is result as normal/abnormal . TRIG (test code = 224 mg/dL 30-170 H 9143252287) LDL CHOL (test code = 98 mg/dL See_Comment [Auto mated message] 54217-8) The system [employer] generated this result transmit nia reference range : <=160. The refe rence range was not u sed to interpret th is result as normal/abnormal . VLDL (test code = 45 mg/dL 5-60 9852830819) Lab Interpretation (test Abnormal code = 25539-6) [facility] with [id number] 11:53:29 Test Item Value Reference Range Interpretation Comments WBC (test code = See_Comment [Automated message] 7790-2) The system [employer] generated this result transmitted ref erence range: 4.20 - 1 0.70 10*3/?L. The re ference range was not u sed to interpret this result as normal/abnor mal. RBC (test code = See_Comment [Automated message] 179-8) The system [employer] generated this result transmitted ref erence range: 4.26 - 5 .52 10*6/?L. The re ference range was not u sed to interpret this result as normal/abnor mal. HGB (test code = 15.3 g/dL 12.2-16.4 718-7) HCT (test code = 45.8 % 38.4-49.3 4544-3) MCV (test code = 85.0 fL 81.7-95.6 787-2) MCH (test code = 28.4 pg 26.1-32.7 785-6) MCHC (test code = 33.4 g/dL 31.2-35.0 786-4) RDW-SD (test code 40.3 fL 38.5-51.6 = 80402-5) RDW-CV (test code 13.2 % 12.1-15.4 = 788-0) PLT (test code = See_Comment [Automated message] 777-3) The system [employer] generated this result transmitted ref erence range: 150 - 32 8 10*3/?L. The re ference range was not u sed to interpret this result as normal/abnor mal. MPV (test code = 11.2 fL 9.8-13.0 88753-1) NRBC/100 WBC (test See_Comment [Automat ed message] code = 9956259641) The syste [employer] which generated this result transmitted ref erence range: 0.0 - 10 .0 /100 WBCs. The refer ence range was not u sed to interpret this result as normal/abnor mal. NRBC x10^3 (test <0.01 See_Comment [Automated message] code = 5479802110) The syste m which generated this result transmitted ref erence range: 10*3/?L. The reference range was not used to interpr et this result as normal/abnormal . GRAN MAT (NEUT) % 56.2 % (test code = 770-8) IMM GRAN % (test 0.30 % code = 8975131481) LYMPH % (test code 34.2 % = 736-9) MONO % (test code 7.2 % = 5905-5) EOS % (test code = 1.6 % 713-8) BASO % (test code 0.5 % = 706-2) GRAN MAT 3.59 10*3/uL 1.99-6.95 x10^3(ANC) (test code = 2790368759) IMM GRAN x10^3 <0.03 0.00-0.06 (test code = 9712860592) LYMPH x10^3 (test 2.18 10*3/uL 1.09-3.23 code = 731-0) MONO x10^3 (test 0.46 10*3/uL 0.36-1.02 code = 742-7) EOS x10^3 (test 0.10 10*3/uL 0.06-0.53 code = 711-2) BASO x10^3 (test 0.03 10*3/uL 0.01-0.09 code = 704-7) [id number] 23:59:39 Test Item Value Reference Interpretation Comments Range D-DIMER (test code = See_Comment H [Autom ated 5757543513) message] The system which generated this result transmitted reference range : <0.41 ?g/mL (FEU). The reference range was not used to interpret this result as normal/abnormal . JAMES (test code = This test may be JAMES) used in conjunction with a clinical pretest probability (PTP) assessment model to exclude venous thromboembolism (VTE) in patients suspected of deep venous thrombosis (DVT) and pulmonary embolism (PE) A D-Dimer value less than 0.50 ?g/ml (FEU) has a negative predicative value of 96 to 100% (95% CI)and 97 to 100% (95% CI) as an aid in the diagnosis of deep vein thrombosis (DVT) and pulmonary embolism when there is low or moderate pretest probability of PE or DVT. D-Dimer values are expressed in initial fibrinogen equivalent units (FEU)" The assay results should be used with other information, including the clinical context, in forming a diagnosis. Lab Interpretation Abnormal (test code = 46310-9) [facility] [id number] 23:30:57 Test Item Value Reference Interpretation Comments Range TROPONIN I (test 0.004 ng/mL See_Comment [Automated code = 3703397001) message] The system which generated this result transmitted reference range : <=0.034. The reference range was not used to interpret this result as normal/abnormal . JAMES (test code = Reference (Normal) JAMES) Range (defined by the 99th percentile reference limit): <= 0.034 ng/mL Note: Cardiac troponin begins to rise 3-4 hours after the onset of ischemia. Repeat in 4-6 hours if the sample was drawn within 3-4 hours of the onset of the symptom and found normal. Diagnosis of myocardial injury is made with acute changes in cTn concentrations with at least one serial sample above the 99th percentile upper reference limit (URL), taken together with the patient's clinical presentation. Biotin has been reported to cause a negative bias, interpret results relative to patient's use of biotin. Lab Interpretation Normal (test code = 43528-2) [facility] [id number] 23:28:01 Test Item Value Reference Range Interpretation Comments NT-proBNP (test code 28 pg/mL See_Comment [Autom ated = 7428773626) message] The system which generated this result transmitted reference range : <=125. The reference range was not used to interpret this result as normal/abnormal . JAMES (test code = JAMES) Biotin has been reported to cause a negative bias, interpret results relative to patient's use of biotin. Lab Interpretation Normal (test code = 51450-9) [facility]OL[facility] PAN[facility] (22023)2021-09-10 23:19:18 Test Item Value Reference Range Interpretation Comments NA (test code = 138 mmol/L 135-145 7506144183) K (test code = 3.6 mmol/L 3.5-5.0 7735263072) CL (test code = 102 mmol/L 98-108 9807540224) CO2 TOTAL (test code = 26 mmol/L 23-31 5384342192) AGAP (test code = 2-16 5319686479) BUN (test code = 6 mg/dL 7-23 L 4080487889) GLUCOSE (test code = 122 mg/dL 70-110 H 6973665953) CREATININE (test code = 0.74 mg/dL 0.60-1.25 7648258255) TOTAL BILI (test code = 0.5 mg/dL 0.1-1.0 4440497138) CALCIUM (test code = 9.1 mg/dL 8.6-10.6 5504033326) T PROTEIN (test code = 7.9 g/dL 6.3-8.2 8125286817) ALBUMIN (test code = 4.8 g/dL 3.5-5.0 7124951168) ALK PHOS (test code = 70 U/L 34-122 4230706175) ALTv (test code = 34 U/L 5-50 1742-6) AST(SGOT) (test code = 31 U/L 13-40 0622794296) eGFR (test code = mL/min/1.73m2 9416546281) JAMES (test code = JAMES) Association of Glomerular Filtration Rate (GFR) and Staging of Kidney Disease* + --+ --+ ------+| GFR (mL/min/1.73 m2) ?| With Kidney Damage ?| ?Without Kidney Damage+ --------+ --------+ +| ?>90 ?| ?Stage one ?| ? Normal ?+ ---+ ---+ -------+| ?60-89 ?| ?Stage two ?| ? Decreased GFR ? + --+ --+ ------+| ?30-59 ?| ?Stage three ?| ? Stage three ? + --+ --+ ------+| ?15-29 ?| ?Stage four ? | ? Stage four ?+ ---+ ---+ -------+| ?<15 (or dialysis) ? ?| ?Stage five ? | ? Stage five ?+ ---+ ---+ -------+ *Each stage assumes the associated GFR level has been in effect for at least three months. ?Stages 1 to 5, with or without kidney disease, indicate chronic kidney disease. Notes: Determination of stages one and two (with eGFR >59mL/min/1.73 m2) requires estimation of kidney damage for at least three months as defined by structural or functional abnormalities of the kidney, manifested by either:Pathological abnormalities or Markers of kidney damage (including abnormalities in the composition of the blood or urine or abnormalities in imaging tests). Lab Interpretation Abnormal (test code = 05092-1) [facility]PROT[facility] / [id number] 23:16:58 Test Item Value Reference Range Interpretation Comments PROTIME PATIENT (test See_Comment [Auto mated message] code = 5964-2) The system wh ich generated this result transmitted ref erence range: 12.0 - 1 4.7 Seconds. The re ference range was not u sed to interpret this result as normal/abnor mal. INR (test code = 6301-6) Nor mal INR <1.1; Warfarin Therap eutic range 2.0 to 3. 0 or 2.5 to 3.5, dep ending upon the indica tions. Lab Interpretation (test Normal code = 83131-0) [facility] WITH [id number] 23:12:17 Test Item Value Reference Range Interpretation Comments WBC (test code = See_Comment [Automated 5390-2) message] The sy stem which generated this result transmitted reference range : 4.20 - 10.70 10*3/?L. The reference range was not used to interpret this result as normal/abnormal . RBC (test code = See_Comment H [Automated 429-8) message] The sy stem which generated this result transmitted reference range : 4.26 - 5.52 10*6/?L. The reference range was not used to interpret this result as normal/abnormal . HGB (test code = 17.8 g/dL 12.2-16.4 H 718-7) HCT (test code = 51.4 % 38.4-49.3 H 4544-3) MCV (test code = 82.6 fL 81.7-95.6 787-2) MCH (test code = 28.6 pg 26.1-32.7 785-6) MCHC (test code = 34.6 g/dL 31.2-35.0 786-4) RDW-SD (test code = 38.7 fL 38.5-51.6 64982-5) RDW-CV (test code = 13.3 % 12.1-15.4 788-0) PLT (test code = See_Comment [Automated 777-3) message] The sy stem which generated this result transmitted reference range : 150 - 328 10*3/ ?L. The reference r marco was not used to interpret this result as normal/abnormal . MPV (test code = 10.9 fL 9.8-13.0 07646-0) NRBC/100 WBC (test See_Comment [Automat ed code = 5665742945) message] The system which generated this result transmitted reference range : 0.0 - 10.0 /100 WBCs. The refer ence range was not u sed to interpret th is result as normal/abnormal . NRBC x10^3 (test code <0.01 See_Comment [Auto mated = [id number]) message] The s ystem which generated this result transmitted reference range : 10*3/?L. The reference range was not used to interpret this result as normal/abnormal . GRAN MAT (NEUT) % 48.6 % (test code = 770-8) IMM GRAN % (test code 0.20 % = 9771880910) LYMPH % (test code = 40.5 % 736-9) MONO % (test code = 8.2 % 5905-5) EOS % (test code = 2.0 % 713-8) BASO % (test code = 0.5 % 706-2) GRAN MAT x10^3(ANC) 4.10 10*3/uL 1.99-6.95 (test code = 9861646187) IMM GRAN x10^3 (test <0.03 0.00-0.06 code = 1153686569) LYMPH x10^3 (test code 3.41 10*3/uL 1.09-3.23 H = 731-0) MONO x10^3 (test code 0.69 10*3/uL 0.36-1.02 = 742-7) EOS x10^3 (test code = 0.17 10*3/uL 0.06-0.53 711-2) BASO x10^3 (test code 0.04 10*3/uL 0.01-0.09 = 704-7) Lab Interpretation Abnormal (test code = 69218-2) [facility] [id number] 02:46:50 No acute intracranial abnormality. Aspect score: 10 Preliminary Report Dictated by Resident: David Loyd MD., have reviewed this study and agree with theabove report.CT HEAD WO CONTRAST HISTORY: 40 years-old male presenting with Stroke suspected, ataxia COMPARISON: None TECHNIQUE: Noncontrast CT of the head was performed. Coronal and sagittalreformats were obtained and reviewed. FINDINGS: The ventricles and cerebral sulci are normal in caliber and configuration.There is no hydrocephalus, midline shift, or pathological extra-axial fluidcollection. The basal cisterns are unremarkable. There is no acute intracranial hemorrhage or significant mass effect. Thereis no parenchymal attenuation abnormality. The ann-white matterdifferentiation is preserved. The aspect score is 10. The mastoid air cells and paranasal sinuses are clear. The calvarium andcentral skull base are unremarkable. [facility], Radiant Results Inft User - 08/25/2020 8:47 PM CSTCT HEAD WO CONTRASTHISTORY: 40 years- old male presenting with Stroke suspected, ataxia COMPARISON: None TECHNIQUE: Noncontrast CT of the head was performed. Coronal and sagittalreformats were obtained and reviewed.FINDINGS:The ventricles and cerebral sulci are normal in caliber and configuration.There is no hydrocephalus, midline shift, or pathological extra-axial fluidcollection. The basal cisterns are unremarkable.There is no acute intracranial hemorrhage or significant mass effect. Thereis no parenchymal attenuation abnormality.The ann-white matterdifferentiation is preserved. The aspect score is 10.The mastoid air cells and paranasal sinuses are clear. The calvarium andcentral skull base are unremarkable.IMPRESSIONNo acute intracranial abnormality. Aspect score: 10Preliminary Report Dictated by Resident: David Still MD., have reviewed this study and agree with theabove report.[facility] MYOCARDIUM PERFUSION STRESS AND [id number] 21:21:401. ?The patient's electrocardiogram is nonischemic.2. ?The patient's clinical response is asymptomatic for angina. 3. ?Overall left ventricular systolic function is 38 % at stress and 34 %at rest. 4. ?SPECT imaging reveals moderate size, moderate degree fixed defect inbasal, mid inferior, apical inferior and apical wall segments.5. ?No reversible defect noted. I was present for the stress portion of the study. [facility] Lexiscan Stress Test Report PROCEDURE:After obtaining witnessed informed consent, patient underwent a Regadenosonnuclear stress test using a one-day protocol. The patient was administered0.4 mg. Regadenoson over 10 seconds intravenously. Myocardial perfusionSPECT imaging was performed at rest after the intravenous injection of 16.5 mCi of Technetium 99m Tetrofosmin. During the stress portion of the test42.7 mCi of Technetium 99m Tetrofosmin wasinjected intravenously at 10seconds after the Regadenoson infusion at peak pharmacologic effect. Thestress gated SPECT study was acquired. Both stress and rest images wereacquired with patient being supine. Images were processed according to ASNguidelines. Short, horizontal long, long axis slices, raw data cines, polarplot, and wall motion analysis were reviewed. FINDINGS:* ?During the Regadenoson administration, no symptoms were noted. * ?Please refer ECG report for full details. * ?The overall technical quality of the study is good. ?* ?Raw cine data reveals no significant abnormality. * ?SPECTimaging reveals moderate size, moderate degree reduced uptake ofradiopharmaceutical agents basal, mid inferior, apical inferior and apicalwall segments in both stress images and rest images. * ?Rest ofthe SPECT imaging reveals normal uptake of radiopharmaceuticalagents in all of wall segments in bothstress and rest images. * ?Post-stress LV end-diastolic volume is 215 ml and LV end-systolic volumeis 134 ml. * ?The left ventricle ejection fraction is calculated to be 38 % at stressand 34 % at rest.* ?Regional wall motion analysis of the left ventricle reveals mild tomoderate inferior wall hypokinesis. * ?TID: 1.01 [facility], Radiant Results Inft User - 05/04/2020 4:22 PM [facility] Lexiscan Stress Test ReportPROCEDURE:After obtaining witnessed informed consent, patient underwent a Regadenosonnuclear stress test using a one-day protocol. The patient was administered0.4 mg. Regadenoson over 10 seconds intravenously. Myocardial perfusionSPECT imaging was performed at rest after the intravenous injection of 16.5 mCi of Technetium 99m Tetrofosmin. During the stress portion of the test42.7 mCi of Technetium 99m Tetrofosmin was injected intravenously at 10seconds after the Regadenoson infusion at peak pharmacologic effect. Thestress gated SPECT study was acquired. Bothstress and rest images wereacquired with patient being supine. Images were processed according to ASNguidelines. Short, horizontal long, long axis slices, raw data cines, polarplot, and wall motion analysis were reviewed. FINDINGS:* During the Regadenoson administration, no symptoms were noted. * Please refer ECG report for full details. * The overall technical quality of the study is good. * Raw cine data reveals no significant abnormality. * SPECT imaging reveals moderate size, moderate degree reduced uptake ofradiopharmaceutical agents basal, mid inferior, apical inferior and apicalwall segments in both stress images and rest images. * Rest of the SPECT imaging reveals normal uptake of radiopharmaceuticalagents in all of wall segments in both stress and rest images. * Post-stress LV end-diastolic volume is 215 ml and LV end-systolic volumeis 134 ml. * The left ventricle ejection fraction is calculated to be 38 % at stressand 34 % at rest. * Regional wall motion analysis of the left ventricle reveals mild tomoderate inferior wall hypokinesis. * TID: [id number]. The patient's electrocardiogram is nonischemic.2. The patient's clinical response is asymptomatic for angina. 3. Overall left ventricular systolic function is 38 % at stress and 34 %at rest. 4. SPECT imaging reveals moderate size, moderate degree fixed defect inbasal, mid inferior, apical inferior and apical wall segments.5. No reversible defect noted. I was present for the stress portion of the study.[facility] HospitalOCS[facility] [id number] 10:34:00 Test Item Value Reference Range Interpretation Comments TROPONIN I (test <0.012 See_Comment [Automated code = 5479643379) message] The system which generated this result transmitted reference range : <=0.034 ng/mL. The reference range was not used to interpr et this result as normal/abnormal . JAMES (test code = Equal or Less than JAMES) 0.034 ng/ml---Normal ?Note: Cardiac troponin begins to rise 3-4 hours after the onset of ischemia. Repeat in 4-6 hours if the sample was drawn within 3-4 hours of the onset of the symptom and found normal. Between 0.035 and 0.120 ng/mL--- Borderline. Questionable myocardial injury or necrosis ? ?Note: Serial measurement may be necessary to confirm or exclude the diagnosis of myocardial injury or necrosis; Clinical correlation (symptoms, EKGs, imaging studies, and others) required; Repeat in 4-6 hours if clinically indicated. ? Equal or Higher than 0.121 ng/mL---Abnormal. Myocardial Injury or Necrosis Likely ? Biotin has been reported to cause a negative bias, interpret results relative to patient's use of biotin. ? Lab Interpretation Normal (test code = 83825-3) [facility] HospitalMICHVioleta [id number] 06:25:00 Test Item Value Reference Range Interpretation Comments TROPONIN I (test <0.012 See_Comment [Automated code = 8583106950) message] The system which generated this result transmitted reference range : <=0.034 ng/mL. The reference range was not used to interpr et this result as normal/abnormal . JAMES (test code = Equal or Less than JAMES) 0.034 ng/ml---Normal ?Note: Cardiac troponin begins to rise 3-4 hours after the onset of ischemia. Repeat in 4-6 hours if the sample was drawn within 3-4 hours of the onset of the symptom and found normal. Between 0.035 and 0.120 ng/mL--- Borderline. Questionable myocardial injury or necrosis ? ?Note: Serial measurement may be necessary to confirm or exclude the diagnosis of myocardial injury or necrosis; Clinical correlation (symptoms, EKGs, imaging studies, and others) required; Repeat in 4-6 hours if clinically indicated. ? Equal or Higher than 0.121 ng/mL---Abnormal. Myocardial Injury or Necrosis Likely ? Biotin has been reported to cause a negative bias, interpret results relative to patient's use of biotin. ? Lab Interpretation Normal (test code = 91550-5) [facility] HospitalTHYROID STIMULATING [id number] 05:37:00 Test Item Value Reference Range Interpretation Comments TSH (test code = See_Comment [Automated message] [id number]) The system [employer] generated this result transmitted ref erence range: 0.45 - 4 .70 mIU/L. The refe rence range was not u sed to interpret this result as normal/abnor mal. Lab Interpretation (test Normal code = 57182-9) [facility] HospitalGLYCOSYLATED HEMOGLOBIN (A1C)2020-05-04 05:15:00 Test Item Value Reference Range Interpretation Comments HGB A1C (test code = 5.4 % 4-6 4548-4) JAMES (test code = JAMES) %A1C (NGSP) Interpretation (ADA)4.8-5.6 ? ? Normal or (Non-Diabetic Range)5.7-6.4 ? ? Increased Risk (Pre-Diabetic)>6.5 ?Diabetes Indicated Lab Interpretation Normal (test code = 53142-2) [facility] HospitalMAGNESIUM2020-09-10 05:04:00 Test Item Value Reference Range Interpretation Comments MAGNESIUM (test code = 9375158032) 1.9 mg/dL 1.7-2.4 Lab Interpretation (test code = Normal 80940-5) [facility] HospitalPHOSPHORUS2020-09-10 05:04:00 Test Item Value Reference Range Interpretation Comments PHOSPHORUS (test code = 6142842922) 3.4 mg/dL 2.5-5 Lab Interpretation (test code = Normal 51988-3) [facility] HospitalD-[id number] 02:22:00 Test Item Value Reference Interpretation Comments Range D-DIMER (test code = <0.27 See_Comment [Autom ated 2095069175) message] The system which generated this result transmitted reference range : <0.41 ?g/mL (FEU). The reference range was not used to interpret this result as normal/abnormal . JAMES (test code = This test may be JAMES) used in conjunction with a clinical pretest probability (PTP) assessment model to exclude venous thromboembolism (VTE) in patients suspected of deep venous thrombosis (DVT) and pulmonary embolism (PE) A D-Dimer value less than 0.50 ?g/ml (FEU) has a negative predicative value of 96 to 100% (95% CI)and 97 to 100% (95% CI) as an aid in the diagnosis of deep vein thrombosis (DVT) and pulmonary embolism when there is low or moderate pretest probability of PE or DVT. D-Dimer values are expressed in initial fibrinogen equivalent units (FEU)" The assay results should be used with other information, including the clinical context, in forming a diagnosis. Lab Interpretation Normal (test code = 43923-5) [facility] HospitalCOVID-19 (ID NOW RAPID TESTING)2020-05-04 02:17:00 Test Item Value Reference Range Interpretation Comments SARS-CoV-2 Rapid ID NOW Not Detected Not Detected (test code = 08633-4) JAMES (test code = JAMES) ID NOW COVID-19 Assay is an isothermal nucleic acid amplification test intended for the qualitative detection of nucleic acid from SARS-CoV-2 viral RNA in nasopharyngeal (CREDIT ASSESSMENT ANALYST) specimens. It is used under Emergency Use Authorization (EUA) by FDA. The limit of detection (LOD) of the assay is 125 Genome Equivalents/mL. A positive result is indicative of the presence of SARS-CoV-2 RNA. ?Clinical correlation with patient history and other diagnostic information is necessary to determine patient infection status. A negative (Not Detected) result does not preclude SARS-CoV-2 infection. In patients with clinical symptoms and other tests that are consistent with SARS-CoV-2 infection, negative results should be treated as presumptive negative and a new specimen should be tested with alternative PCR molecular test. Invalid: Please collect a new specimen for repeat patient testing if clinically indicated. Lab Interpretation Normal (test code = 41130-7) [facility] HospitalTRJOSS [id number] 02:07:00 Test Item Value Reference Range Interpretation Comments TROPONIN I (test <0.012 See_Comment [Automated code = 0471567085) message] The system which generated this result transmitted reference range : <=0.034 ng/mL. The reference range was not used to interpr et this result as normal/abnormal . JAMES (test code = Equal or Less than JAMES) 0.034 ng/ml---Normal ?Note: Cardiac troponin begins to rise 3-4 hours after the onset of ischemia. Repeat in 4-6 hours if the sample was drawn within 3-4 hours of the onset of the symptom and found normal. Between 0.035 and 0.120 ng/mL--- Borderline. Questionable myocardial injury or necrosis ? ?Note: Serial measurement may be necessary to confirm or exclude the diagnosis of myocardial injury or necrosis; Clinical correlation (symptoms, EKGs, imaging studies, and others) required; Repeat in 4-6 hours if clinically indicated. ? Equal or Higher than 0.121 ng/mL---Abnormal. Myocardial Injury or Necrosis Likely ? Biotin has been reported to cause a negative bias, interpret results relative to patient's use of biotin. ? Lab Interpretation Normal (test code = 29922-8) [facility] HospitalN-TERMINAL [id number] 02:04:00 Test Item Value Reference Range Interpretation Comments NT-proBNP (test code 51 pg/mL See_Comment [Autom ated = 2542933534) message] The system which generated this result transmitted reference range : <=125. The reference range was not used to interpret this result as normal/abnormal . JAMES (test code = JAMES) Biotin has been reported to cause a negative bias, interpret results relative to patient's use of biotin. Lab Interpretation Normal (test code = 11470-4) [facility]. METABOLIC PANEL (68840)2020-05-04 01:59:00 Test Item Value Reference Range Interpretation Comments NA (test code = 137 mmol/L 135-145 0195623397) K (test code = 3.3 mmol/L 3.5-5 L 3065210551) CL (test code = 100 mmol/L 98-108 2566716743) CO2 TOTAL (test code = 24 mmol/L 23-31 2330194428) AGAP (test code = 2-16 5693687475) BUN (test code = 6 mg/dL 7-23 L 1072717497) GLUCOSE (test code = 117 mg/dL 70-110 H 7717226632) CREATININE (test code = 0.64 mg/dL 0.6-1.25 9274949741) TOTAL BILI (test code = 0.5 mg/dL 0.1-1.3 3599552009) CALCIUM (test code = 9.5 mg/dL 8.6-10.6 7321329455) T PROTEIN (test code = 7.2 g/dL 6.3-8.2 9144123850) ALBUMIN (test code = 4.1 g/dL 3.5-5 8575134268) ALK PHOS (test code = 90 U/L 34-122 4351551333) ALTv (test code = 18 U/L 5-50 1742-6) AST(SGOT) (test code = 23 U/L 13-40 2820673598) eGFR Calculation mL/min/1.73m2 (Non-) (test code = 1026322105) eGFR Calculation mL/min/1.73m2 () (test code = 1345024638) JAMES (test code = JAMES) Association of Glomerular Filtration Rate (GFR) and Staging of Kidney Disease* + --+ --+ ------+| GFR (mL/min/1.73 m2) ?| With Kidney Damage ?| ?Without Kidney Damage+ --------+ --------+ +| ?>90 ?| ?Stage one ?| ? Normal ?+ ---+ ---+ -------+| ?60-89 ?| ?Stage two ?| ? Decreased GFR ? + --+ --+ ------+| ?30-59 ?| ?Stage three ?| ? Stage three ? + --+ --+ ------+| ?15-29 ?| ?Stage four ? | ? Stage four ?+ ---+ ---+ -------+| ?<15 (or dialysis) ? ?| ?Stage five ? | ? Stage five ?+ ---+ ---+ -------+ *Each stage assumes the associated GFR level has been in effect for at least three months. ?Stages 1 to 5, with or without kidney disease, indicate chronic kidney disease. Notes: Determination of stages one and two (with eGFR >59mL/min/1.73 m2) requires estimation of kidney damage for at least three months as defined by structural or functional abnormalities of the kidney, manifested by either:Pathological abnormalities or Markers of kidney damage (including abnormalities in the composition of the blood or urine or abnormalities in imaging tests). Lab Interpretation Abnormal (test code = 99706-2) [facility] HospitalLIPID PANEL (87688)(TOTAL CHOLESTEROL, TRIGLYCERIDES, HDL)2020-05-04 01:59:00 Test Item Value Reference Range Interpretation Comments CHOL (test code = 207 mg/dL 120-200 H 0792463550) HDL (test code = 25 mg/dL >40 L 6717961088) HDLC RATIO (test code = See_Comment H [Au tomated message] 6542285479) The system [employer] generated this result transmit nia reference range : <=5.0. The refe rence range was not u sed to interpret th is result as normal/abnormal . TRIG (test code = 141 mg/dL 30-170 2721651640) LDL CHOL (test code = 154 mg/dL See_Comment [Auto mated message] 01169-0) The system [employer] generated this result transmit nia reference range : <=160. The refe rence range was not u sed to interpret th is result as normal/abnormal . VLDL (test code = 28 mg/dL 5-60 6590803861) Lab Interpretation (test Abnormal code = 31060-0) [facility] HospitalLIPASE2020-09-10 01:58:00 Test Item Value Reference Range Interpretation Comments LIPASE (test code = 6058003588) 28 U/L 0-220 Lab Interpretation (test code = Normal 54486-8) [facility] HospitalaPTT2020-09-10 01:56:00 Test Item Value Reference Range Interpretation Comments APTT Patient (test See_Comment [Automat ed code = 3173-2) message] The system which generated this result transmitted reference range : 23 - 38 Seconds . The reference range was not used to interpr et this result as normal/abnormal . JAMES (test code = JAMES) The [facility] patient population mean normal value for aPTT is 30 seconds. Lab Interpretation Normal (test code = 84164-0) [facility] HospitalPROTHROMBIN TIME / [id number] 01:54:00 Test Item Value Reference Range Interpretation Comments PROTIME PATIENT (test See_Comment [Auto mated message] code = 5964-2) The system [employer] generated this result transmitted ref erence range: 12.0 - 1 4.7 Seconds. The re ference range was not u sed to interpret this result as normal/abnor mal. INR (test code = 6301-6) Nor mal INR <1.1; Warfarin Therap eutic range 2.0 to 3. 0 or 2.5 to 3.5, dep ending upon the indica tions. Lab Interpretation (test Normal code = 43201-1) [facility] HospitalXR CHEST 1 [id number] 01:52:32 Mild interstitial pulmonary edema with cardiomegaly. Preliminary Report Dictated by Resident: Evaristo Loyd ?MD Dillon., have reviewed this study and agree with the abovereport.EXAM: XR CHEST 1 VW HISTORY: 40 years-old; Male; chest pain, sob COMPARISON: 01/21/2020 radiograph FINDINGS: Lungs/Pleura: Prominent central vascular congestion with increase bilateralinterstitial marking. ?There isno pleural effusion or pneumothorax. Heart/Mediastinum: The cardiomediastinal silhouette is enlarged. Changes ofmedian sternotomy are noted. Redemonstration of the superiormost fourthsternotomy fracture wire. No acute osseous structure abnormality. [facility], Radiant Results Inft User - 05/03/2020 8:53 PMCDTEXAM: XR CHEST 1 VWHISTORY: 40 years-old; Male; chest pain, sob COMPARISON: 01/21/2020 radiographFINDINGS:Lungs/Pleura: Prominent central vascular congestion with increase bilateralinterstitial marking. There is no pleural effusion or pneumothorax.Heart/Mediastinum: The cardiomediastinal silhouetteis enlarged. Changes ofmedian sternotomy are noted. Redemonstration of the superiormost fourthsternotomy fracture wire.No acute osseous structure abnormality.IMPRESSIONMild interstitial pulmonary edemawith cardiomegaly.Preliminary Report Dictated by Resident: Cameron Almanza, Evaristo Carranza MD., have reviewed this study and agree with the abovereport.[facility] WITH [id number] 01:21:00 Test Item Value Reference Range Interpretation Comments WBC (test code = See_Comment [Automated 6690-2) message] The sy stem which generated this result transmitted reference range : 4.20 - 10.70 10*3/?L. The reference range was not used to interpret this result as normal/abnormal . RBC (test code = See_Comment H [Automated 789-8) message] The sy stem which generated this result transmitted reference range : 4.26 - 5.52 10*6/?L. The reference range was not used to interpret this result as normal/abnormal . HGB (test code = 17.3 g/dL 12.2-16.4 H 718-7) HCT (test code = 49.1 % 38.4-49.3 4544-3) MCV (test code = 82.4 fL 81.7-95.6 787-2) MCH (test code = 29.0 pg 26.1-32.7 785-6) MCHC (test code = 35.2 g/dL 31.2-35 H 786-4) RDW-SD (test code = 39.6 fL 38.5-51.6 66232-1) RDW-CV (test code = 13.3 % 12.1-15.4 788-0) PLT (test code = See_Comment [Automated 777-3) message] The sy stem which generated this result transmitted reference range : 150 - 328 10*3/ ?L. The reference r marco was not used to interpret this result as normal/abnormal . MPV (test code = 11.5 fL 9.8-13 37734-6) NRBC/100 WBC (test See_Comment [Automat ed code = 8775808801) message] The system which generated this result transmitted reference range : 0.0 - 10.0 /100 WBCs. The refer ence range was not u sed to interpret th is result as normal/abnormal . NRBC x10^3 (test code <0.01 See_Comment [Auto mated = 6360554198) message] The s ystem which generated this result transmitted reference range : 10*3/?L. The reference range was not used to interpret this result as normal/abnormal . GRAN MAT (NEUT) % 55.2 % (test code = 770-8) IMM GRAN % (test code 0.20 % = 3289127629) LYMPH % (test code = 37.7 % 736-9) MONO % (test code = 4.1 % 5905-5) EOS % (test code = 2.3 % 713-8) BASO % (test code = 0.5 % 706-2) GRAN MAT x10^3(ANC) 4.59 10*3/uL 1.99-6.95 (test code = 0880862617) IMM GRAN x10^3 (test <0.03 0-0.06 code = 9591918655) LYMPH x10^3 (test code 3.14 10*3/uL 1.09-3.23 = 731-0) MONO x10^3 (test code 0.34 10*3/uL 0.36-1.02 L = 742-7) EOS x10^3 (test code = 0.19 10*3/uL 0.06-0.53 711-2) BASO x10^3 (test code 0.04 10*3/uL 0.01-0.09 = 704-7) Lab Interpretation Abnormal (test code = 74088-9) [facility] 1 [id number] 14:53:28 Cardiomegaly with interstitial edema. PA and lateral views of the chest arerecommended for better evaluation Preliminary Report Dictated by Resident: Evaristo Ramirez MD., havereviewed this study and agree with the abovereport.XR CHEST 1 VW Comparison: 11/08/2017 History: CHEST PAIN Findings: Pruning and cephalization of the pulmonary vessels is noted. No pleuraleffusion, focal consolidation, or pneumothorax is identified. The cardiomediastinal silhouette is enlarged. Median sternotomy wires arepresent. No acute osseous abnormality is present. 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 [facility], Radiant Results Inft User - 01/21/2020 10:02 AM CDTXR CHEST 1 VWComparison: 11/08/2017History: CHEST PAIN Findings:Pruning and cephalization of thepulmonary vessels is noted. No pleuraleffusion, focal consolidation, or pneumothorax is identified. The cardiomediastinal silhouette is enlarged. Median sternotomy wires arepresent.No acute osseous abnormality is present. 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 PA and lateral views of the chest arerecommended for better evaluationPreliminary Report Dictated by Resident: Linette Caldwell, Evaristo Carranza MD., have reviewed this study and agree with the abovereport.[facility] HospitalCORONAVIRUS COVID-19 [id number] 14:50:00 Test Item Value Reference Range Interpretation Comments SARS-CoV-2 Rapid ID NOW Not Detected Not Detected (test code = 83837-5) JAMES (test code = JAMES) ID NOW COVID-19 Assay is an isothermal nucleic acid amplification test intended for the qualitative detection of nucleic acid from SARS-CoV-2 viral RNA in nasopharyngeal (CREDIT ASSESSMENT ANALYST) specimens. It is used under Emergency Use Authorization (EUA) by FDA. The limit of detection (LOD) of the assay is 125 Genome Equivalents/mL. A positive result is indicative of the presence of SARS-CoV-2 RNA. ?Clinical correlation with patient history and other diagnostic information is necessary to determine patient infection status. A negative (Not Detected) result does not preclude SARS-CoV-2 infection. In patients with clinical symptoms and other tests that are consistent with SARS-CoV-2 infection, negative results should be treated as presumptive negative and a new specimen should be tested with alternative PCR molecular test. Invalid: Please collect a new specimen for repeat patient testing if clinically indicated. Lab Interpretation Normal (test code = 89481-9) [facility] HospitalTroponin [id number] 14:48:00 Test Item Value Reference Range Interpretation Comments TROPONIN I (test <0.012 See_Comment [Automated code = 9400604914) message] The system which generated this result transmitted reference range : <=0.034 ng/mL. The reference range was not used to interpr et this result as normal/abnormal . JAMES (test code = Equal or Less than JAMES) 0.034 ng/ml---Normal ?Note: Cardiac troponin begins to rise 3-4 hours after the onset of ischemia. Repeat in 4-6 hours if the sample was drawn within 3-4 hours of the onset of the symptom and found normal. Between 0.035 and 0.120 ng/mL--- Borderline. Questionable myocardial injury or necrosis ? ?Note: Serial measurement may be necessary to confirm or exclude the diagnosis of myocardial injury or necrosis; Clinical correlation (symptoms, EKGs, imaging studies, and others) required; Repeat in 4-6 hours if clinically indicated. ? Equal or Higher than 0.121 ng/mL---Abnormal. Myocardial Injury or Necrosis Likely ? Biotin has been reported to cause a negative bias, interpret results relative to patient's use of biotin. ? Lab Interpretation Normal (test code = 25059-2) [facility] HospitalN-TERMINAL [id number] 14:45:00 Test Item Value Reference Range Interpretation Comments NT-proBNP (test code 31 pg/mL See_Comment [Autom ated = 7303255756) message] The system which generated this result transmitted reference range : <=125. The reference range was not used to interpret this result as normal/abnormal . JAMES (test code = JAMES) Biotin has been reported to cause a negative bias, interpret results relative to patient's use of biotin. Lab Interpretation Normal (test code = 28507-0) [facility] HospitalaPTT2020-05-29 14:37:00 Test Item Value Reference Range Interpretation Comments APTT Patient (test See_Comment [Automat ed code = 3173-2) message] The system which generated this result transmitted reference range : 23 - 38 Seconds . The reference range was not used to interpr et this result as normal/abnormal . JAMES (test code = JAMES) The [facility] patient population mean normal value for aPTT is 30 seconds. Lab Interpretation Normal (test code = 32558-3) [facility] HospitalBasi Metabolic Panel (NA, K, CL, CO2, GLUCOSE, BUN, CREATININE, CA)2020-01-21 14:36:00 Test Item Value Reference Range Interpretation Comments NA (test code = 141 mmol/L 135-145 9562369559) K (test code = 3.8 mmol/L 3.5-5 7108215936) CL (test code = 106 mmol/L 98-108 7685961881) CO2 TOTAL (test code = 26 mmol/L 23-31 6319312056) AGAP (test code = 2-16 8692968249) BUN (test code = 6 mg/dL 7-23 L 0159121938) GLUCOSE (test code = 97 mg/dL 70-110 2499282228) CREATININE (test code = 0.69 mg/dL 0.6-1.25 8524212171) CALCIUM (test code = 9.7 mg/dL 8.6-10.6 5202235301) eGFR Calculation mL/min/1.73m2 (Non-) (test code = 1653846307) eGFR Calculation mL/min/1.73m2 () (test code = 5310212900) JAMES (test code = JAMES) Association of Glomerular Filtration Rate (GFR) and Staging of Kidney Disease* + --+ --+ ------+| GFR (mL/min/1.73 m2) ?| With Kidney Damage ?| ?Without Kidney Damage+ --------+ --------+ +| ?>90 ?| ?Stage one ?| ? Normal ?+ ---+ ---+ -------+| ?60-89 ?| ?Stage two ?| ? Decreased GFR ? + --+ --+ ------+| ?30-59 ?| ?Stage three ?| ? Stage three ? + --+ --+ ------+| ?15-29 ?| ?Stage four ? | ? Stage four ?+ ---+ ---+ -------+| ?<15 (or dialysis) ? ?| ?Stage five ? | ? Stage five ?+ ---+ ---+ -------+ *Each stage assumes the associated GFR level has been in effect for at least three months. ?Stages 1 to 5, with or without kidney disease, indicate chronic kidney disease. Notes: Determination of stages one and two (with eGFR >59mL/min/1.73 m2) requires estimation of kidney damage for at least three months as defined by structural or functional abnormalities of the kidney, manifested by either:Pathological abnormalities or Markers of kidney damage (including abnormalities in the composition of the blood or urine or abnormalities in imaging tests). Lab Interpretation Abnormal (test code = 39243-5) [facility] HospitalHepatic Function Panel (ALB, T.PRO, BILI T, BU/BC, ALT, AST, ALK PHOS)2020-01-21 14:36:00 Test Item Value Reference Range Interpretation Comments TOTAL BILI (test code = 1158495292) 0.5 mg/dL 0.1-1.1 BILI UNCON (test code = 4694244979) 0.7 mg/dL 0.1-1.1 BILI CONJ (test code = 4029001359) 0.0 mg/dL 0-0.3 T PROTEIN (test code = 7104502575) 7.7 g/dL 6.3-8.2 ALBUMIN (test code = 9454974150) 4.6 g/dL 3.5-5 ALK PHOS (test code = 2105968015) 94 U/L 34-122 ALTv (test code = 1742-6) 26 U/L 5-50 AST(SGOT) (test code = 7969720078) 28 U/L 13-40 Lab Interpretation (test code = Normal 69580-2) [facility] HospitalProthrombin Time (PT) / [id number] 14:35:00 Test Item Value Reference Range Interpretation Comments PROTIME PATIENT (test See_Comment [Auto mated message] code = 5964-2) The system wh ich generated this result transmitted ref erence range: 12.0 - 1 4.7 Seconds. The re ference range was not u sed to interpret this result as normal/abnor mal. INR (test code = 6301-6) Nor mal INR <1.1; Warfarin Therap eutic range 2.0 to 3. 0 or 2.5 to 3.5, dep ending upon the indica tions. Lab Interpretation (test Normal code = 73111-8) [facility] HospitalCBC WITH [id number] 14:32:00 Test Item Value Reference Range Interpretation Comments WBC (test code = See_Comment [Automated 6690-2) message] The sy stem which generated this result transmitted reference range : 4.20 - 10.70 10*3/?L. The reference range was not used to interpret this result as normal/abnormal . RBC (test code = See_Comment H [Automated 789-8) message] The sy stem which generated this result transmitted reference range : 4.26 - 5.52 10*6/?L. The reference range was not used to interpret this result as normal/abnormal . HGB (test code = 18.7 g/dL 12.2-16.4 H 718-7) HCT (test code = 53.0 % 38.4-49.3 H 4544-3) MCV (test code = 82.8 fL 81.7-95.6 787-2) MCH (test code = 29.2 pg 26.1-32.7 785-6) MCHC (test code = 35.3 g/dL 31.2-35 H 786-4) RDW-SD (test code = 42.3 fL 38.5-51.6 21392-5) RDW-CV (test code = 14.5 % 12.1-15.4 788-0) PLT (test code = See_Comment [Automated 777-3) message] The sy stem which generated this result transmitted reference range : 150 - 328 10*3/ ?L. The reference r marco was not used to interpret this result as normal/abnormal . MPV (test code = 11.1 fL 9.8-13 63438-0) NRBC/100 WBC (test See_Comment [Automat ed code = 1208174715) message] The system which generated this result transmitted reference range : 0.0 - 10.0 /100 WBCs. The refer ence range was not u sed to interpret th is result as normal/abnormal . NRBC x10^3 (test code <0.01 See_Comment [Auto mated = 0356351296) message] The s ystem which generated this result transmitted reference range : 10*3/?L. The reference range was not used to interpret this result as normal/abnormal . GRAN MAT (NEUT) % 55.9 % (test code = 770-8) IMM GRAN % (test code 0.30 % = 6060663019) LYMPH % (test code = 34.9 % 736-9) MONO % (test code = 6.1 % 5905-5) EOS % (test code = 2.3 % 713-8) BASO % (test code = 0.5 % 706-2) GRAN MAT x10^3(ANC) 4.87 10*3/uL 1.99-6.95 (test code = 3028990168) IMM GRAN x10^3 (test 0.03 10*3/uL 0-0.06 code = 2000537058) LYMPH x10^3 (test code 3.04 10*3/uL 1.09-3.23 = 731-0) MONO x10^3 (test code 0.53 10*3/uL 0.36-1.02 = 742-7) EOS x10^3 (test code = 0.20 10*3/uL 0.06-0.53 711-2) BASO x10^3 (test code 0.04 10*3/uL 0.01-0.09 = 704-7) Lab Interpretation Abnormal (test code = 00986-3) [facility]
[2021-09-14] MEDS ORDERED: NA CHLORIDE 0.9% 1,000 ML ONE (13:42)
[2021-09-14 13:46] LABS: Absolute Lymphocytes (CBC) 2.2 K/uL (0.7-4.9); Hematocrit 49.4 % (39.6-49.0); Lymphocytes % 27.6 % (15.3-44.8); MPV 8.6 fL (7.6-11.3)
[2021-09-14 13:50] LABS: Protime INR 0.99
--- NOTE | 2021-09-14 13:58 | RAD REPORT ---
EXAM DESCRIPTION: CT - Head Brain Wo Cont - 09/14/2021 1:43 pm CLINICAL HISTORY: DIZZINESS COMPARISON: No comparisons TECHNIQUE: All CT scans are performed using dose optimization technique as appropriate and may inclu de automated exposure control or mA/KV adjustment according to patient size. FINDINGS: No intracranial hemorrhage, hydrocephalus or extra-axial fluid collection.No areas of brai n edema or evidence of midline shift. The paranasal sinuses and mastoids are clear. The calvarium is intact. IMPRESSION: No acute intracranial abnormality.
[2021-09-14 14:10] LABS: ALT/SGPT 49 U/L (12-78); AST/SGOT 19 U/L (15-37); Albumin 3.9 g/dL (3.4-5.0); Alkaline Phosphatase 83 U/L (45-117); BUN Blood Urea Nitrogen 9 mg/dL (7-18); Bicarbonate 29 mmol/L (21-32); Bilirubin Direct < 0.1 mg/dL (0-0.2); Bilirubin Total 0.3 mg/dL (0.2-1.0); Glucose Level 108 mg/dL (74-106); Magnesium 2.3 mg/dL (1.8-2.4); NT PRO-BNP 21 pg/mL (<125); Potassium 3.9 mmol/L (3.5-5.1); Protein, Total 7.7 g/dL (6.4-8.2); Sodium Level 139 mmol/L (136-145)
[2021-09-14 14:11] LABS: C-Reactive Protein < 2.90 mg/L (<3.00)
--- NOTE | 2021-09-14 14:24 | RAD REPORT ---
EXAM DESCRIPTION: RAD - Chest Single View - 09/14/2021 2:10 pm CLINICAL HISTORY: COUGH COMPARISON: CHEST SINGLE VIEW dated 03/22/2013; CHEST SINGLE VIEW dated 02/19/2013; CHEST SINGLE VIEW dated 01/05/2012; CHEST SINGLE VIEW dated 01/24/2011 FINDINGS: Lines: None. Lungs: No evidence of edema or pneumonia. Pleural: No significant pleural effusions or pneumothorax. Cardiac: Cardiomegaly. Sternotomy. Bones: No acute fractures. Other: IMPRESSION: No acute cardiopulmonary disease.
--- NOTE | 2021-09-14 14:28 | RAD REPORT ---
EXAM DESCRIPTION: US - CP - 09/14/2021 2:22 pm CLINICAL HISTORY: DIZZINESS COMPARISON: No comparisons TECHNIQUE: Real-time sonographic evaluation of both carotid systems was performed. Doppler interroga tion was performed with waveform tracing bilaterally. FINDINGS: Normal high resistance waveforms are noted in both external carotid arteries. The common c arotid arteries and internal carotid arteries show normal low resistance waveforms. No significant plaque formation is seen. Peak systolic and end diastolic velocity values and the ICA/ CCA ratios are in the non-hemodynamically significant range. Antegrade flow seen in both vertebral arteries. IMPRESSION: No significant atherosclerotic changes noted. No evidence of a hemodynamically significant stenosis.
[2021-09-14 16:20] LABS: Urine Blood Negative (Negative); Urine Glucose Negative (Negative); Urine Protein Negative (Negative); Urine Specific Gravity 1.015 (1.005-1.030)
--- NOTE | 2021-09-14 16:39 | ER ---
Nurse's Notes 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 Still dizzy at times. Coronavirus screen: Vaccine status: Patient reports being unvaccinated. At this time, the client does not indicate any symptoms associated with coronavirus-19. Ebola Screen: Patient denies travel to an Ebola-affected area in the 21 days before illness onset. Initial Sepsis Screen: Does the patient meet any 2 criteria? No. Patient's initial sepsis screen is negative. Does the patient have a suspected source of infection? Yes: Productive cough/pneumonia. Risk Assessment: Do you want to hurt yourself or someone else? Patient reports no desire to harm self or others. Onset of symptoms was August 19, 2021. 12:53 Method Of Arrival: Ambulatory ll1 12:53 Acuity: RANDY 3 ll1 Triage Assessment: 13:29 General: Appears comfortable, well groomed, well developed, well nourished, Behavior is cb5 calm, cooperative, appropriate for age. Pain: Denies pain. Neuro: No deficits noted. Level of Consciousness is awake, alert, obeys commands. Historical: - Allergies: 12:55 No Known Allergies; ll1 - PMHx: 12:55 Hypertensive disorder; MO; ll1 - PSHx: 12:55 2 stents; Coronary artery bypass graft; ll1 - Immunization history:: Client reports having NOT received the Covid vaccine. Flu vaccine status is unknown. - Social history:: Smoking status: Reported history of juuling and/or vaping. Screenin:38 Abuse screen: Denies threats or abuse. Denies injuries from another. Nutritional cb5 screening: No deficits noted. Tuberculosis screening: No symptoms or risk factors identified. Fall Risk None identified. Assessment: 13:36 General: Appears comfortable, well groomed, well developed, well nourished, Behavior is cb5 calm, cooperative, appropriate for age. Pain: Denies pain. Neuro: No deficits noted. Level of Consciousness is awake, alert, obeys commands. Cardiovascular: Reports pt reports his first MO was age 30,he felt faint today at home, denies hitting his head during possible syncope episode. Respiratory: No deficits noted. GI: Patient currently denies. : Denies. EENT: No deficits noted. Derm: No deficits noted. Musculoskeletal: No deficits noted. 14:30 Reassessment: No changes from previously documented assessment. ss 16:30 Reassessment: Patient denies pain at this time. Patient states feeling better. ss 17:15 Reassessment: Patient denies pain at this time. ss 17:20 Reassessment: Asked patient f he was having any pain, pt denies pain at this time. Allyn ss aware. 18:30 Reassessment: Patient denies pain at this time. Patient states feeling better. ss 19:45 General: Appears in no apparent distress. comfortable, well groomed, well developed, tk1 well nourished, Behavior is calm, cooperative, appropriate for age. Pain: Complains of pain in chest Pain does not radiate. Pain currently is 2 out of 10 on a pain scale. Quality of pain is described as pressure, Pain began 2-3 days ago. Is continuous. Neuro: Level of Consciousness is awake, alert, obeys commands, Oriented to person, place, time, Media Relations Manager are equal bilaterally Moves all extremities. Gait is steady, Speech is normal. Cardiovascular: Reports chest pain. Respiratory: No deficits noted. Airway is patent Breath sounds are clear bilaterally. GI: No deficits noted. : No deficits noted. 21:05 Reassessment: No changes from previously documented assessment. tk1 22:15 Reassessment: at bedside. Patient awaiting transport to Med Surg floor. VSS. tk1 Vital Signs: 12:53 Pulse 82; Resp 17; Temp 97.1; Pulse Ox 99% ; Weight 117.93 kg; Height 6 ft. 3 in. ll1 (190.50 cm); Pain 0/10; 12:56 BP 166 / 99; ll1 13:35 BP 161 / 104; Pulse 72; Resp 18; Temp 98.6; Pulse Ox 99% ; Pain 0/10; cb5 14:15 BP 147 / 89; Pulse 76; Resp 18; Pulse Ox 100% ; ss 18:15 BP 121 / 70; Pulse 70; Resp 16; Temp 98.6; Pulse Ox 99% ; ss 21:00 BP 132 / 75 LA Supine (auto/reg); Pulse 70 LA; Resp 16; Temp 98.5; Pulse Ox 100% ; Pain tk1 2/10; 22:00 BP 142 / 81 LA Supine (auto/reg); Pulse 80 MON; Resp 18; Pulse Ox 100% ; Pain 2/10; tk1 12:53 Body Mass Index 32.50 (117.93 kg, 190.50 cm) ll1 ED Course: 12:39 Patient arrived in ED. as 12:55 Triage completed. ll1 12:56 Arm band placed on Patient placed in an exam room, on a stretcher. ll1 13:21 Dennis Marques MD is Attending Physician. windy 13:29 Marietta Allred, SYEDA is Primary Nurse. cb5 13:38 Patient has correct armband on for positive identification. Bed in low position. Call cb5 light in reach. Side rails up X 1. 13:38 No provider procedures requiring assistance completed. cb5 13:39 Basic Metabolic Panel Sent. cb5 13:39 CBC with Diff Sent. cb5 13:39 LFT's Sent. cb5 13:39 Magnesium Sent. cb5 13:39 NT PRO-BNP Sent. cb5 13:39 PT-INR Sent. cb5 13:39 Troponin HS Sent. cb5 13:39 Inserted saline lock: 20 gauge in left antecubital area, using aseptic technique. Blood tp1 collected. 13:40 D-Dimer Sent. cb5 13:40 CRP Sent. cb5 13:43 CT Head Brain wo Cont In Process Unspecified. EDMS 14:10 XRAY Chest (1 view) In Process Unspecified. EDMS 14:22 US Carotid Artery Bilateral In Process Unspecified. EDMS 15:54 Troponin High Sensitivity: NOW Sent. cb5 16:38 Juventino Ledesma MD is Referral Physician. windy 16:49 Juventino Carias DO is Hospitalizing Provider. windy 19:06 Report given to Shira Neumann cb5 19:21 No apparent distress. Awaiting bed assignment. tk1 19:21 IV is patent, is intact, Changed dressing on Flushed right antecubital. tk1 Administered Medications: 13:42 Drug: NS 0.9% 1000 ml Route: IV; Rate: 1 bolus; Site: right antecubital; cb5 17:15 Drug: Lopressor (metoprolol TARTRATE) 50 mg Route: PO; ss 17:15 Drug: Pepcid (famotidine) 20 mg Route: IVP; Site: right antecubital; ss 18:25 Drug: Lovenox (enoxaparin) 100 mg Route: Sub-Q; Site: left lower abdomen; ss Output: 19:21 Urine: 600ml (Voided); Total: 600ml. tk1 22:53 Urine: 325ml (Voided); Total: 925ml. tk1 Outcome: 16:39 Discharge ordered by . windy 16:50 Decision to Hospitalize by Provider. windy 21:49 Admitted to Med/surg Report called to Report called to SYEDA Marques tk1 21:49 Condition: stable 22:52 Admitted to Med/surg accompanied by tech, via wheelchair, room 205, with chart. tk1 22:53 Patient left the ED. tk1 Signatures: Dispatcher [employer] EDOR Dennis Marques MD MD cha Martinez, Amelia as Smirch, Shelby, RN RN ss Anatoly Escamilla RN RN Geraldine Cedeno tp Nel Villeda tk1 Marietta Allred, RN RN cb5
--- NOTE | 2021-09-14 16:39 | EDPHYS ---
Physician Documentation [facility] Name: Joey Ortega Age: 41 yrs Sex: Male : 1980 Arrival Date: 09/14/2021 Time: 12:39 Bed 13 Private MD: KALIN Physician Dennis Marques HPI: 09/14 16:33 This 41 yrs old Male presents to ER via Ambulatory with complaints of windy Dizziness. 16:33 The patient presents with dizziness, generalized weakness. Onset: The symptoms/episode windy began/occurred 1 hour(s) ago. Context: occurred at home. Modifying factors: The symptoms are alleviated by nothing, the symptoms are aggravated by nothing. Associated signs and symptoms: Pertinent positives:. Severity of symptoms: At their worst the symptoms were mild in the emergency department the symptoms are unchanged. Patient's baseline: Neuro: alert and fully oriented. The patient has not experienced similar symptoms in the past. Historical: - Allergies: 12:55 No Known Allergies; ll1 - PMHx: 12:55 Hypertensive disorder; MD; ll1 - PSHx: 12:55 2 stents; Coronary artery bypass graft; ll1 - Immunization history:: Client reports having NOT received the Covid vaccine. Flu vaccine status is unknown. - Social history:: Smoking status: Reported history of juuling and/or vaping. ROS: 16:34 Constitutional: Negative for fever, chills, and weight loss, Eyes: Negative for injury, windy pain, redness, and discharge, ENT: Negative for injury, pain, and discharge, Neck: Negative for injury, pain, and swelling, Cardiovascular: Negative for chest pain, palpitations, and edema, Respiratory: Negative for shortness of breath, cough, wheezing, and pleuritic chest pain, Abdomen/GI: Negative for abdominal pain, nausea, vomiting, diarrhea, and constipation, Back: Negative for injury and pain, : Negative for injury, bleeding, discharge, and swelling, MS/Extremity: Negative for injury and deformity, Skin: Negative for injury, rash, and discoloration, Psych: Negative for depression, anxiety, suicide ideation, homicidal ideation, and hallucinations, Allergy/Immunology: Negative for hives, rash, and allergies, Endocrine: Negative for neck swelling, polydipsia, polyuria, polyphagia, and marked weight changes, Hematologic/Lymphatic: Negative for swollen nodes, abnormal bleeding, and unusual bruising. 16:34 Neuro: Positive for dizziness, weakness. Exam: 16:34 Constitutional: This is a well developed, well nourished patient who is awake, alert, windy and in no acute distress. Head/Face: Normocephalic, atraumatic. Eyes: Pupils equal round and reactive to light, extra-ocular motions intact. Lids and lashes normal. Conjunctiva and sclera are non-icteric and not injected. Cornea within normal limits. Periorbital areas with no swelling, redness, or edema. ENT: Nares patent. No nasal discharge, no septal abnormalities noted. Tympanic membranes are normal and external auditory canals are clear. Oropharynx with no redness, swelling, or masses, exudates, or evidence of obstruction, uvula midline. Mucous membranes moist. Neck: Trachea midline, no thyromegaly or masses palpated, and no cervical lymphadenopathy. Supple, full range of motion without nuchal rigidity, or vertebral point tenderness. No Meningismus. Chest/axilla: Normal chest wall appearance and motion. Nontender with no deformity. No lesions are appreciated. Cardiovascular: Regular rate and rhythm with a normal S1 and S2. No gallops, murmurs, or rubs. Normal PMI, no JVD. No pulse deficits. Abdomen/GI: Soft, non-tender, with normal bowel sounds. No distension or tympany. No guarding or rebound. No evidence of tenderness throughout. Back: No spinal tenderness. No costovertebral tenderness. Full range of motion. Male : Normal genitalia with no discharge or lesions. Skin: Warm, dry with normal turgor. Normal color with no rashes, no lesions, and no evidence of cellulitis. MS/ Extremity: Pulses equal, no cyanosis. Neurovascular intact. Full, normal range of motion. Psych: Awake, alert, with orientation to person, place and time. Behavior, mood, and affect are within normal limits. 16:34 ECG was reviewed by the Attending Physician. 16:34 Respiratory: the patient does not display signs of respiratory distress, Respirations: normal, Breath sounds: are clear throughout, Respiratory rate: 18 Vital Signs: 12:53 Pulse 82; Resp 17; Temp 97.1; Pulse Ox 99% ; Weight 117.93 kg; Height 6 ft. 3 in. ll1 (190.50 cm); Pain 0/10; 12:56 BP 166 / 99; ll1 13:35 BP 161 / 104; Pulse 72; Resp 18; Temp 98.6; Pulse Ox 99% ; Pain 0/10; cb5 14:15 BP 147 / 89; Pulse 76; Resp 18; Pulse Ox 100% ; ss 18:15 BP 121 / 70; Pulse 70; Resp 16; Temp 98.6; Pulse Ox 99% ; ss 21:00 BP 132 / 75 LA Supine (auto/reg); Pulse 70 LA; Resp 16; Temp 98.5; Pulse Ox 100% ; Pain tk1 2/10; 22:00 BP 142 / 81 LA Supine (auto/reg); Pulse 80 MON; Resp 18; Pulse Ox 100% ; Pain 2/10; tk1 12:53 Body Mass Index 32.50 (117.93 kg, 190.50 cm) ll1 MDM: 13:23 Patient medically screened. windy 16:39 Differential diagnosis: cardiac arrhythmia, CVA, generalized weakness, GI bleed, windy hypovolemia, idiopathic dizziness, near-syncope, TIA, vertigo. Data reviewed: vital signs, nurses notes, lab test result(s), EKG, radiologic studies, CT scan, doppler, plain films. Data interpreted: monitor worker: rate is 72 beats/min, rhythm is regular, Pulse oximetry: on room air is 99 %. Test interpretation: by ED physician or midlevel provider: ECG, plain radiologic studies. Counseling: I had a detailed discussion with the patient and/or guardian regarding: the historical points, exam findings, and any diagnostic results supporting the discharge/admit diagnosis, lab results, radiology results, the need for outpatient follow up, for definitive care, a chiropractor, a family practitioner. 09/14 13:22 Order name: Basic Metabolic Panel; Complete Time: 14:42 windy 09/14 13:22 Order name: CBC with Diff; Complete Time: 14:42 windy 09/14 13:22 Order name: LFT's; Complete Time: 14:42 windy 09/14 13:22 Order name: Magnesium; Complete Time: 14:42 windy 09/14 13:22 Order name: NT PRO-BNP; Complete Time: 14:42 windy 09/14 13:22 Order name: PT-INR; Complete Time: 14:42 windy 09/14 13:22 Order name: Troponin HS; Complete Time: 14:42 [facility] 09/14 13:22 Order name: XRAY Chest (1 view); Complete Time: 14:42 [facility] 09/14 13:22 Order name: D-Dimer; Complete Time: 14:42 [facility] 09/14 13:22 Order name: CRP; Complete Time: 14:42 [facility] 09/14 15:24 Order name: Troponin High Sensitivity: NOW; Complete Time: 16:32 [facility] 09/14 16:19 Order name: Urine Dipstick-Ancillary; Complete Time: 16:32 [facility] 09/14 19:19 Order name: COVID-19 SARS RT PCR (Document "Date of Onset" if Symptomatic) [facility] 09/14 20:11 Order name: SARS-COV-2 RT PCR [facility] 09/14 13:22 Order name: EKG; Complete Time: 13:23 [facility] 09/14 13:22 Order name: Cardiac monitoring; Complete Time: 13:39 [facility] 09/14 13:22 Order name: EKG - Nurse/Tech; Complete Time: 14:43 [facility] 09/14 13:22 Order name: IV Saline Lock; Complete Time: 13:39 [facility] 09/14 13:22 Order name: Labs collected and sent; Complete Time: 13:39 [facility] 09/14 13:22 Order name: O2 Per Protocol; Complete Time: 13:39 [facility] 09/14 13:22 Order name: O2 Sat Monitoring; Complete Time: 13:39 [facility] 09/14 13:22 Order name: CT Head Brain wo Cont; Complete Time: 14:42 [facility] 09/14 13:22 Order name: US Carotid Artery Bilateral; Complete Time: 14:42 [facility] 09/14 16:40 Order name: EKG; Complete Time: 16:41 [facility] 09/14 13:22 Order name: Urine Dipstick-Ancillary (obtain specimen) [facility] 09/14 16:40 Order name: EKG - Nurse/Tech [facility] EC:34 Rate is 67 beats/min. Rhythm is regular. QRS [place] is Normal. [place] interval is normal. QRS windy interval is normal. QT interval is normal. Q waves are Present in leads II, III, aVF. T waves are Normal. No ST changes noted. Clinical impression: Abnormal EKG without significant change and No evidence of ischemia. Interpreted by me. Reviewed by me. Administered Medications: 13:42 Drug: NS 0.9% 1000 ml Route: IV; Rate: 1 bolus; Site: right antecubital; cb5 17:15 Drug: Lopressor (metoprolol TARTRATE) 50 mg Route: PO; ss 17:15 Drug: Pepcid (famotidine) 20 mg Route: IVP; Site: right antecubital; ss 18:25 Drug: Lovenox (enoxaparin) 100 mg Route: Sub-Q; Site: left lower abdomen; ss Disposition Summary: 09/14/21 16:50 Hospitalization Ordered Hospitalization Status: Observation windy Provider: Juventino Carias cha Location: Telemetry/MedSurg (observation)(09/14/21 16:50) windy Condition: Stable(09/14/21 16:50) windy Problem: new(09/14/21 16:50) windy Symptoms: have improved(09/14/21 16:50) windy Bed/Room Type: Standard [facility] Room Assignment: 205(09/14/21 20:35) Diagnosis - Essential (primary) hypertension(09/14/21 16:50) windy - Chest pain, unspecified windy - Dizziness and giddiness(09/14/21 16:50) windy Forms: - Medication Reconciliation Form windy - SBAR form windy Signatures: Dispatcher [employer] EDDennis Ireland MD MD cha Smirch, Shelby, RN RN ss Garcia, Cindy, RN RN Anatoly Escamilla RN RN ll1 Marietta Allred RN RN cb5 Corrections: (The following items were deleted from the chart) 16:44 16:39 Home windy windy 16:44 16:39 new windy windy 16:44 16:39 have improved windy windy 16:44 16:39 Stable windy windy 16:44 16:39 Essential (primary) hypertension windy windy 16:44 16:39 Dizziness and giddiness windy windy 20:35 16:50 windy cg
[2021-09-14] MEDS ORDERED: MORPHINE 4 MG/ML SYR ONE (17:08)
[2021-09-14] MEDS ORDERED: METOPROLOL TAR 50 MG TAB ONE (17:08)
[2021-09-14] MEDS ORDERED: ONDANSETRON 4 MG/2 ML VIAL ONE (17:09)
[2021-09-14] MEDS ORDERED: FAMOTIDINE 20 MG/2 ML VIAL IV ONE (17:09)
[2021-09-14] MEDS ORDERED: ENOXAPARIN 100 MG/ML SYR SQ ONE (17:10)
--- NOTE | 2021-09-14 17:25 | P.HP ---
Certification for Inpatient Patient admitted to: Observation With expected LOS: <2 Midnights Patient will require the following post-hospital care: None Practitioner: I am a practitioner with admitting privileges, knowledge of patient current condition, hospital course, and medical plan of care. Services: Services provided to patient in accordance with Admission requirements found in Title 42 Section 412.3 of the Code of Federal Regulations Patient History Date of Service: 09/14/21 Primary Care Provider: [facility] Reason for admission: Dizziness, Chest pain, HTN History of Present Illness: 41-year-old male with history of hypertension, hyperlipidemia, CAD with prior CABG. Patient presented to the emergency room with dizziness and chest pain. Patient reports that he developed COVID on August 19. He is recovered since that time. He reports that he was seen in [facility] for chest pain. He reports at that time his cardiac stress test and echocardiogram were unremarkable. Since that time patient reports blood pressures have been fluctuating low and high. He takes Plavix 25 mg daily, Zocor 80 mg daily, lisinopril 2.5 mg daily, Toprol-XL 25 mg daily and aspirin 81 mg daily. Chest pain noted today. He came to the ER for further evaluation of his dizziness. In the ER patient was evaluated. Cardiac enzymes unremarkable. CBC unremarkable. Sodium 139, potassium 3.9, BUN of 9, creatinine 0.93 with a GFR unremarkable. Blood sugar 108. Head CT unremarkable. Chest x-ray unremarkable. Carotid Doppler unremarkable. Blood pressures were elevated upon evaluation. Patient was admitted for observation. Home medications list reviewed: Yes Home Medications: Unobtainable 03/22/13 - Past Medical/Surgical History Diabetic: No -: CAD with prior CABG x1 vessel and prior stents -: Hypertension -: Hyperlipidemia -: CABG x1 vessel with 2 prior stents, 2013 Psychosocial/ Personal History: Patient is - Family History Family History: Reviewed- Non-Contributory - Social History Smoking Status: Never smoker Alcohol use: Yes CD- Drugs: No Caffeine use: Yes Place of Residence: Home Review of Systems General: As per HPI Eyes: Unremarkable ENT: Unremarkable Respiratory: Unremarkable Cardiovascular: Chest Pain, Light Headedness, As per HPI Gastrointestinal: Unremarkable Genitourinary: Unremarkable Musculoskeletal: Unremarkable Integumentary: Unremarkable Neurological: Unremarkable Lymphatics: Unremarkable Physical Examination - Studies Laboratory Data (last 24 hrs) 09/14/21 13:37: PT 11.4, INR 0.99 09/14/21 13:37: WBC 8.10, Hgb 16.7, Hct 49.4 H, Plt Count 195 09/14/21 13:37: Sodium 139, Potassium 3.9, BUN 9, Creatinine 0.93, Glucose 108 H, Magnesium 2.3, Total Bilirubin 0.3, AST 19, ALT 49, Alkaline Phosphatase 83 Assessment and Plan - Plan COVID: pending Chest x-ray: COMPARISON: CHEST SINGLE VIEW dated 03/22/2013; CHEST SINGLE VIEW dated 02/19/2013; CHEST SINGLE VIEW dated 01/05/2012; CHEST SINGLE VIEW dated 01/24/2011 FINDINGS: Lines: None. Lungs: No evidence of edema or pneumonia. Pleural: No significant pleural effusions or pneumothorax. Cardiac: Cardiomegaly. Sternotomy. Bones: No acute fractures. IMPRESSION: No acute cardiopulmonary disease. CT head: COMPARISON: No comparisons TECHNIQUE: All CT scans are performed using dose optimization technique as appropriate and may include automated exposure control or mA/KV adjustment according to patient size. FINDINGS: No intracranial hemorrhage, hydrocephalus or extra-axial fluid collection.No areas of brain edema or evidence of midline shift. The paranasal sinuses and mastoids are clear. The calvarium is intact. IMPRESSION: No acute intracranial abnormality. Carotid Doppler: COMPARISON: No comparisons TECHNIQUE: Real-time sonographic evaluation of both carotid systems was performed. Doppler interrogation was performed with waveform tracing bilaterally. FINDINGS: Normal high resistance waveforms are noted in both external carotid arteries. The common carotid arteries and internal carotid arteries show normal low resistance waveforms. No significant plaque formation is seen. Peak systolic and end diastolic velocity values and the ICA/CCA ratios are in the non-hemodynamically significant range. Antegrade flow seen in both vertebral arteries. IMPRESSION: No significant atherosclerotic changes noted. No evidence of a hemodynamically significant stenosis. Physical Exam: GENERAL: The patient is a well-developed, well-nourished, in no apparent distress. Alert and oriented x3. VITAL SIGNS: Reviewed HEENT: Head is normocephalic and atraumatic. Extraocular muscles are intact. Pupils are equal, round, and reactive to light and accommodation. Nares appeared normal. Mouth is well hydrated and without lesions. Mucous membranes are moist. NECK: Supple. No carotid bruits. No lymphadenopathy or thyromegaly. LUNGS: Clear to auscultation. No crackles or wheezes are heard. HEART: Regular rate and rhythm, no appreciable gallops, rubs, murmurs or extra heart sounds ABDOMEN: Soft, nontender, and nondistended. Positive bowel sounds. No hepatosplenomegaly was noted. EXTREMITIES: Without any cyanosis, clubbing, rash, lesions or peripheral edema. NEUROLOGIC: The patient is oriented to person, place and time. Strength and sensation are grossly intact. Face is symmetric. SKIN: Normal color, turgor and temperature. No ulcerations or rashes noted. Impression: Dizziness, Chest pain Hypertension uncontrolled CAD with prior CABG x1 vessel, 2 stents Hyperlipidemia GERD History of COVID Plan: Dizziness, Chest pain: Patient will be made for further evaluation. Dizziness and chest pain likely related to underlying uncontrolled hypertension. Will increase Toprol-XL to 25 mg 1 pill twice daily and lisinopril to 5 mg daily. Will monitor and adjust medication. Cardiac enzymes negative x2. Patient had a work-up recently in [facility] which included stress test and echocardiogram which was unremarkable. Doubt no need for further evaluation. We will monitor the patient overnight. We will get blood pressure better controlled. Anticipate discharge tomorrow. Will check urine drug screen. I will turn the service over to the hospitalist team tomorrow. I will go over plan of care with him. Hypertension uncontrolled: Blood pressure elevated in the ER. Will increase Toprol-XL to 25 mg 1 pill twice daily and lisinopril 5 mg daily. Will make further adjustments for better control. Will monitor for fluctuations as the patient has reported. CAD with prior CABG x1 vessel, 2 stents: Overall stable. Continue aspirin 81 mg daily and Plavix 75 mg daily. Patient reports recently had a work-up in [facility] which included cardiac stress test and echocardiogram which was unremarkable. Doubt no need for intervention at this time. Hyperlipidemia: We will check fasting lipid panel. We will continue with Zocor 80 mg daily. GERD: We will start Pepcid 20 mg 1 pill twice daily. History of COVID: Recheck COVID. No symptoms noted at this time. Code Status: Full Code DVT prophylaxis: Lovenox Advanced Care Planning-30 minutes: Home at discharge Discharge Plan: Home Plan to discharge in: 24 Hours - Advance Directives Does patient have a Living Will: No Does patient have a Durable POA for Healthcare: No - Code Status/Comfort Care Code Status Assessed: Yes (Full code) Time Spent Managing Pts Care (In Minutes): 55
[2021-09-14] MEDS: METOPROLOL XL 25 MG TAB PO SCH (22:50)
[2021-09-14] MEDS ORDERED: ATORVASTATIN 40 MG TAB PO SCH (22:50)
[2021-09-14] MEDS ORDERED: ACETAMINOPHEN 500 MG TAB PO PRN (22:50)
[2021-09-14] MEDS ORDERED: ONDANSETRON 4 MG/2 ML VIAL IV PRN (22:50)
[2021-09-14 23:41] LABS: Creatine Phosphokinase 47 U/L (39-308)
[2021-09-14 23:45] LABS: CKMB Creatine Kinase MB < 1.0 ng/mL (1.0-3.6)
[2021-09-14 23:47] VITALS: BMI 32.0
[2021-09-15 00:45] LABS: Urine Appearance CLEAR (Clear); Urine Bilirubin NEGATIVE (Negative); Urine Blood NEGATIVE (Negative); Urine Color YELLOW (Yellow); Urine Glucose NEGATIVE (Negative); Urine Protein NEGATIVE (Negative); Urine pH 6.5 (5.0-7.0)
[2021-09-15 00:46] LABS: Urine Microscopic Reflex ORDER UMIC
[2021-09-15 00:51] LABS: Urine Bacteria <20 /HPF (NONE SEEN); Urine RBC NONE SEEN /HPF (NONE SEEN)
[2021-09-15 00:53] LABS: Barbiturates NEGATIVE (NEGATIVE); Benzodiazepines NEGATIVE (NEGATIVE); Cocaine NEGATIVE (NEGATIVE); METHAMPHETAM NEGATIVE (NEGATIVE); Methadone NEGATIVE (NEGATIVE); Opiates NEGATIVE (NEGATIVE); Phencyclidine NEGATIVE (NEGATIVE); THC Cannibis NEGATIVE (NEGATIVE)
[2021-09-15] MEDS: FAMOTIDINE 20 MG TAB PO SCH ×2 (01:24→09:27)
[2021-09-15 01:34] LABS: SARS-COV-2 RT PCR NEGATIVE (NEGATIVE)
[2021-09-15 06:16] LABS: Absolute Lymphocytes (CBC) 2.5 K/uL (0.7-4.9); Hematocrit 46.6 % (39.6-49.0); Lymphocytes % 36.9 % (15.3-44.8); MPV 8.5 fL (7.6-11.3); RBC Red Blood Cell Count 5.48 M/uL (4.33-5.43)
[2021-09-15 06:37] LABS: Magnesium 2.2 mg/dL (1.8-2.4); Potassium 4.3 mmol/L (3.5-5.1); Thyroid Stimulating Hormone 1.97 uIU/mL (0.360-3.740)
[2021-09-15] MEDS ORDERED: ASPIRIN EC 81 MG TAB PO SCH (09:00)
[2021-09-15] MEDS ORDERED: lisinopriL 5 MG TAB PO SCH (09:00)
[2021-09-15] MEDS ORDERED: ENOXAPARIN 40 MG/0.4 ML SQ SCH (09:00)
[2021-09-15] MEDS ORDERED: CLOPIDOGREL 75 MG TABLET PO SCH (09:00)
[2021-09-15] MEDS: METOPROLOL XL 25 MG TAB PO SCH (09:26)
[2021-09-15 09:28] VITALS: BP 116/63
--- NOTE | 2021-09-15 09:32 | P.DS ---
Admission Date: 09/14/21 Discharge Date: 09/15/21 Primary Care Provider: [facility] Disposition: ROUTINE DISCHARGE Discharge Condition: GOOD Reason for Admission: Dizziness, Chest pain, HTN Brief History of Present Illness: Chest x-ray: COMPARISON: CHEST SINGLE VIEW dated 03/22/2013; CHEST SINGLE VIEW dated 02/19/2013; CHEST SINGLE VIEW dated 01/05/2012; CHEST SINGLE VIEW dated 01/24/2011 FINDINGS: Lines: None. Lungs: No evidence of edema or pneumonia. Pleural: No significant pleural effusions or pneumothorax. Cardiac: Cardiomegaly. Sternotomy. Bones: No acute fractures. IMPRESSION: No acute cardiopulmonary disease. CT head: COMPARISON: No comparisons TECHNIQUE: All CT scans are performed using dose optimization technique as appropriate and may include automated exposure control or mA/KV adjustment according to patient size. FINDINGS: No intracranial hemorrhage, hydrocephalus or extra-axial fluid collection.No areas of brain edema or evidence of midline shift. The paranasal sinuses and mastoids are clear. The calvarium is intact. IMPRESSION: No acute intracranial abnormality. Carotid Doppler: COMPARISON: No comparisons TECHNIQUE: Real-time sonographic evaluation of both carotid systems was performed. Doppler interrogation was performed with waveform tracing bilaterally. FINDINGS: Normal high resistance waveforms are noted in both external carotid arteries. The common carotid arteries and internal carotid arteries show normal low resistance waveforms. No significant plaque formation is seen. Peak systolic and end diastolic velocity values and the ICA/CCA ratios are in the non-hemodynamically significant range. Antegrade flow seen in both vertebral arteries. IMPRESSION: No significant atherosclerotic changes noted. No evidence of a hemodynamically significant stenosis. Impression: Dizziness, Chest pain Hypertension uncontrolled CAD with prior CABG x1 vessel, 2 stents Hyperlipidemia GERD History of COVID Plan: Dizziness, Chest pain: Patient will be made for further evaluation. Dizziness and chest pain likely related to underlying uncontrolled hypertension. Will increase Toprol-XL to 25 mg 1 pill twice daily and lisinopril to 5 mg daily. Will monitor and adjust medication. Cardiac enzymes negative x2. Patient had a work-up recently in [facility] which included stress test and echocardiogram which was unremarkable. Doubt no need for further evaluation. We will monitor the patient overnight. We will get blood pressure better controlled. Anticipate discharge tomorrow. Will check urine drug screen. I will turn the service over to the hospitalist team tomorrow. I will go over plan of care with him. Hypertension uncontrolled: Blood pressure elevated in the ER. Will increase Toprol-XL to 25 mg 1 pill twice daily and lisinopril 5 mg daily. Will make further adjustments for better control. Will monitor for fluctuations as the patient has reported. CAD with prior CABG x1 vessel, 2 stents: Overall stable. Continue aspirin 81 mg daily and Plavix 75 mg daily. Patient reports recently had a work-up in [facility] which included cardiac stress test and echocardiogram which was unremarkable. Doubt no need for intervention at this time. Hyperlipidemia: We will check fasting lipid panel. We will continue with Zocor 80 mg daily. GERD: We will start Pepcid 20 mg 1 pill twice daily. History of COVID: Recheck COVID. No symptoms noted at this time. Hospital Course: Physical Exam: GENERAL: The patient is a well-developed, well-nourished, in no apparent distress. Alert and oriented x3. VITAL SIGNS: Reviewed HEENT: Head is normocephalic and atraumatic. Extraocular muscles are intact. Pupils are equal, round, and reactive to light and accommodation. Nares appeared normal. Mouth is well hydrated and without lesions. Mucous membranes are moist. NECK: Supple. No carotid bruits. No lymphadenopathy or thyromegaly. LUNGS: Clear to auscultation. No crackles or wheezes are heard. HEART: Regular rate and rhythm, no appreciable gallops, rubs, murmurs or extra heart sounds ABDOMEN: Soft, nontender, and nondistended. Positive bowel sounds. No hepatosplenomegaly was noted. EXTREMITIES: Without any cyanosis, clubbing, rash, lesions or peripheral edema. NEUROLOGIC: The patient is oriented to person, place and time. Strength and sensation are grossly intact. Face is symmetric. No tremors of his hands were noted SKIN: Normal color, turgor and temperature. No ulcerations or rashes noted. Hospital course Admitted with elevated blood pressure and complaint of chest pain. EKG was unremarkable. He has had a recent work-up of chest pain at a different facility prior to admission. He was ruled out with negative serial sets of cardiac enzymes. His chest pain has resolved this morning. He is complaining of mild tremors on ambulation to the bathroom. Urine drug screen was negative. TSH was within normal range. His blood pressure significantly improved with slight increase in his medication. Famotidine has been added to his regimen for his atypical chest pain. Patient will be discharged home today to follow-up with his primary in 1 week. Vital Signs/Physical Exam: Temp Pulse Resp BP Pulse Ox 97.2 F 86 18 116/63 98 09/15/21 05:00 09/15/21 09:27 09/15/21 05:00 09/15/21 09:27 09/15/21 05:00 Laboratory Data at Discharge: WBC 6.80 K/uL (4.3-10.9) D 09/15/21 05:56 Hgb 15.5 g/dL (13.6-17.9) 09/15/21 05:56 Hct 46.6 % (39.6-49.0) 09/15/21 05:56 Plt Count 189 K/uL (152-406) 09/15/21 05:56 PT 11.4 SECONDS (9.5-12.5) 09/14/21 13:37 INR 0.99 09/14/21 13:37 Sodium 141 mmol/L (136-145) 09/15/21 05:56 Potassium 4.3 mmol/L (3.5-5.1) 09/15/21 05:56 BUN 7 mg/dL (7-18) 09/15/21 05:56 Creatinine 0.95 mg/dL (0.55-1.3) 09/15/21 05:56 Glucose 93 mg/dL (74-106) 09/15/21 05:56 Magnesium 2.2 mg/dL (1.8-2.4) 09/15/21 05:56 Total Bilirubin 0.3 mg/dL (0.2-1.0) 09/14/21 13:37 AST 19 U/L (15-37) 09/14/21 13:37 ALT 49 U/L (12-78) 09/14/21 13:37 Alkaline Phosphatase 83 U/L (45-117) 09/14/21 13:37 Triglycerides 131 mg/dL (<150) 09/15/21 05:56 Cholesterol 156 mg/dL (<200) 09/15/21 05:56 HDL Cholesterol 29 mg/dL (40-60) L 09/15/21 05:56 Cholesterol/HDL Ratio 5.38 09/15/21 05:56 Home Medications: Atorvastatin Calcium [Lipitor] 40 mg PO BEDTIME tab 09/15/21 Clopidogrel Bisulfate [Plavix*] 1 tab PO DAILY 09/15/21 Famotidine [Pepcid*] 20 mg PO BID #40 tab 09/15/21 Lisinopril [Zestril] 1 tab PO DAILY 09/15/21 Metoprolol Succinate [Toprol Xl] 25 mg PO DAILY #30 09/15/21 Nitroglycerin [Nitrostat*] 1 tab SL SEECOM 09/15/21 New Medications: Famotidine [Pepcid*] 20 mg PO BID #40 tab Metoprolol Succinate [Toprol Xl] 25 mg PO DAILY #30 Diet: Low sodium Followup: NONE,NONE [Primary Care Provider] - Time spent managing pt's care (in minutes): 35
[2021-09-15 09:37] VITALS: O2SAT 92
[2021-09-15 10:48] VITALS: TEMP 97.9
== END 2021-09-15 12:15 | disposition home or self-care (01) ==
LOC: ER 12:35 → ERHOLD 17:15 → 2ND 21:53
PROVIDERS: ADMIT Family Medicine; ATTEND Internal Medicine
DX: I10 Essential (primary) hypertension (principal); R42 Dizziness and giddiness; R07.89 Other chest pain; I25.10 Atherosclerotic heart disease of native coronary artery without angina pectoris; I25.2 Old myocardial infarction; E78.5 Hyperlipidemia, unspecified; K21.9 Gastro-esophageal reflux disease without esophagitis; Z95.5 Presence of coronary angioplasty implant and graft; Z95.1 Presence of aortocoronary bypass graft; Z87.891 Personal history of nicotine dependence; Z86.16 Personal history of COVID-19
CPT/HCPCS: 93005; 85025 ×2; 80048 ×2; 36415; 83735 ×2; 82550; 85610; 80061; 85379; 80076; 84443; 81003; 84484 ×3; 82553; 84439; 83880; 0240U; 80307; 86140; 70450; 71045; 93880; 96372; 96374; 99285; J1650 ×2; J7030; G0378 ×3; 81015; J2405; U0003

== ENCOUNTER 2021-11-28 10:27 | Emergency (ER) | payer OTHER ==
--- OUTSIDE RECORDS SUMMARY | 2021-11-28 10:30 | XMS REPORT | Continuity of Care Document ---
:1980 Author Organization [facility] t Address [address] [place] [address] Care Team Providers Name Role Phone Center, Aiden Gibson [facility] Primary Care Physician [phone] Omar THAKKAR, K.H. Attending Clinician Payers Payer Name Policy Type Policy Number Effective Date Expiration Date S ource Problems Condition Condition Condition Status Onset Resolution Last Treating Co mments Source Name Details Category Date Date Treatment Clinician Date Hypertensi Hypertensi Disease Active 2021-0 U nivers ve urgency ve urgency 1-18 it y of 00:00: [place] 00 Medical Branch Essential Essential Disease Active 2020-0 Uni vers hypertensi hypertensi 9-13 it y of on on 00:00: [place] 00 Medical Branch Dyslipidem Dyslipidem Disease Active 2020-0 U nivers ia ia 9-13 ity of 00:00: [place] 00 Medical Branch Coronary Coronary Disease Active 2020-0 Unive rs artery artery 9-13 ity of disease disease 00:00: [place] involving involving 00 Medi hakan coronary coronary Branch bypass bypass graft of graft of circle circle heart with heart with angina angina pectoris pectoris Chest pain Chest pain Disease Active 2020-0 U nivers in adult in adult 9-09 ity of 00:00: [place] 00 Medical Branch Obesity Obesity Disease Active 2018-0 Univers (BMI (BMI 3-17 ity of 30-39.9) 30-39.9) 00:00: [place] 00 Medical Branch Chest pain Chest pain Disease Active U vita 7-08 ity of 00:00: [place] 00 Medical Branch Allergies, Adverse Reactions, Alerts This patient has no known allergies or adverse reactions. Social History Social Habit Start Date Stop Date Quantity Comments Source Exposure to Not sure [facility] SARS-CoV-2 [facility] (event) Branch Alcohol intake 2021-09-19 2021-09-19 Current University of 00:00:00 00:00:00 non-drinker of [facility] [place] alcohol Branch (finding) Education 2021-09-11 2021-09-11 14 [facility] 00:00:00 00:00:00 [facility] Tobacco use and 2017-11-08 2017-11-08 Current user Univers ity of exposure 00:00:00 00:00:00 [facility] Sex Ass[birth year] At [birth year] Universit y of 00:00:00 00:00:00 [facility] Smoking Status Start Date Stop Date Source Current every day smoker 2017-11-08 00:00:00 Uni versity of [facility] Medications Ordered Filled Start Stop Current Ordering Indication Dosage Frequency Signature Comments Components Source Medication Medication Date Date Medication? Clinician (SIG) Name Name isosorbide Yes [id number] 10mg Take 1 Univers dinitrate 1-27 tablet by ity o f 10 mg 00:00: mouth 2 [place] tablet 00 (two) Medical times [place] daily. isosorbide Yes [id number] 10mg Take 1 Univers dinitrate 1-27 tablet by ity o f 10 mg 00:00: mouth 2 [place] tablet 00 (two) Medical times [place] daily. simvastatin Yes 80mg Take 80 mg Univers 80 mg 1-26 by mouth ity of tablet 13:40: at [place] 18 bedtime. Medical Branch simvastatin Yes 80mg Take 80 mg Univers 80 mg 1-26 by mouth ity of tablet 13:40: at [place] 18 bedtime. Medical Branch metoprolol 2021- No [id number] 25mg Take 1 Univers succinate 1-26 02-26 tablet by ity of XL 25 mg 24 00:00: 05:59 mouth 2 [place] tablet 00 :00 (two) Medical times [place] daily for 30 days. metoprolol 2021- No [id number] 25mg Take 1 Univers succinate 09-19 tablet by ity of XL 25 mg 24 00:00: 05:59 mouth 2 [place] tablet 00 :00 (two) Medical [facility] daily for 30 days. isosorbide 2021- No [id number] 30mg Take 1 Univers mononitrate 09-19 tablet by it y of 30 mg 24 hr 00:[place]: [place] tablet [place] :00 daily for Medical 30 days. [place] isosorbide 2021- No [id number] 30mg Take 1 Univers mononitrate 09-19 tablet by it y of 30 mg 24 hr 00:00: 00:[place] tablet 00 :00 daily for Medical 30 days. [place] metoprolol 2021- No [id number] 25mg Take 1 Univers succinate 09-19 tablet by ity of XL 25 mg 24 00:00: 00:[place] tablet 00 :00 daily. [facility] metoprolol 2021- No [id number] 25mg Take 1 Univers succinate 09-19 tablet by ity of XL 25 mg 24 00:00: 00:[place] tablet 00 :00 daily. [facility] Branch aspirin 81 2021- No [id number] 162mg Take 2 Univers mg chewable 09-12 tablets by i ty of tablet 00:00: 05:59 mouth [place] 00 :00 daily for Medical 30 days. [place] lisinopriL 2021- No [id number] 2.5mg Take 1 Univers 2.5 mg 09-12 tablet by ity of tablet 00:00: 05:59 mouth [place] 00 :00 daily for Medical 30 days. [place] aspirin 81 2021- No [id number] 162mg Take 2 Univers mg chewable 09-12 tablets by i ty of tablet 00:00: 05:59 mouth [place] 00 :00 daily for Medical 30 days. [place] lisinopriL 2021- No [id number] 2.5mg Take 1 Univers 2.5 mg 09-12 tablet by ity of tablet 00:00: 05:59 mouth [place] 00 :00 daily for Medical 30 days. Branch metoprolol 2021- No [id number] 12.5mg Take 0.5 Univers succinate 09-12 tablets by ity of XL 25 mg 24 00:00: 00:00 [place] tablet 00 :00 daily for Medic al 30 days. Branch metoprolol 2021- No [id number] 12.5mg Take 0.5 Univers succinate 09-12 tablets by ity of XL 25 mg 24 00:00: 00:00 [place] tablet 00 :00 daily for Medic al 30 days. Branch nitroglycer Yes [id number] .4mg Place 1 Univers in 0.4 mg 1-18 tablet ity of sublingual 00:00: under the [place] tablet 00 tongue Medical every 5 Branch (five) minutes as needed for Chest pain. nitroglycer Yes [id number] .4mg Place 1 Univers in 0.4 mg 1-18 tablet ity of sublingual 00:00: [place] the [place] tablet 00 tongue Medical every 5 Branch (five) minutes as needed for Chest pain. clopidogreL 2021- No [id number] 75mg Take 1 Univers 75 mg 1-18 02-18 tablet by ity of tablet 00:00: 05:59 mouth [place] 00 :00 daily for Medical 30 days. Branch clopidogreL 2021- No [id number] 75mg Take 1 Univers 75 mg 1-18 02-18 tablet by ity of tablet 00:00: 05:59 mouth [place] 00 :00 daily for Medical 30 days. Branch Immunizations Ordered Filled Immunization Date Status Comments [facility] e Immunization Name Name Pneumococcal 2017-11-19 Completed [place] o f Polysaccharide, 00:00:00 [facility] ical PPSV23 (PNEUMOVAX) Branch TDAP 2017-11-19 Completed [facility] 00:00:00 [facility] Pneumococcal 2017-11-19 Completed [place] o f Polysaccharide, 00:00:00 [place] Med ical PPSV23 (PNEUMOVAX) Branch TDAP 2017-11-19 Completed [facility] 00:00:00 [facility] Vital Signs Vital Name Observation Time Observation Value Comments Source Systolic blood 2021-09-19 19:39:00 120 mm[Hg] Univer sity of pressure [facility] Diastolic blood 2021-09-19 19:39:00 81 mm[Hg] Unive rsity of pressure [facility] Heart rate 2021-09-19 19:39:00 81 /min [facility] Respiratory rate 2021-09-19 19:39:00 17 /min Univ ersity of [facility] Body height 2021-09-19 19:39:00 190.5 cm [facility] Body weight 2021-09-19 19:39:00 117.283 kg [facility] BMI 2021-09-19 19:39:00 32.32 kg/m2 [facility] Oxygen saturation in 2021-09-19 19:39:00 98 /min [facility] Arterial blood by [facility] [place] Pulse oximetry Branch Procedures This patient has no known procedures. Encounters Start End Encounter Admission Attending Care Care Encounter Source Date/Time Date/Time Type Type Clinicians Facility Department ID 2021-09-19 2021-09-19 Office TATYANA Nelson [id number] [facility] 14:00:00 14:14:48 Visit Sangeetha AMEZQUITA [id number] [facility] [id number] Mellisa MCCALL [id number] Nv dical NAL 059 Branch BUILDING Results This patient has no known results.
[2021-11-28 11:09] LABS: Absolute Lymphocytes (CBC) 2.4 K/uL (0.7-4.9); Hematocrit 49.5 % (39.6-49.0); Lymphocytes % 39.5 % (15.3-44.8); MPV 8.5 fL (7.6-11.3); RBC Red Blood Cell Count 5.95 M/uL (4.33-5.43)
--- NOTE | 2021-11-28 11:14 | RAD REPORT ---
EXAM DESCRIPTION: RAD - Chest Single View - 11/28/2021 11:08 am CLINICAL HISTORY: CHEST PAIN COMPARISON: Chest Single View dated 09/14/2021; CHEST SINGLE VIEW dated 03/22/2013; CHEST SINGLE VIEW dated 02/19/2013; CHEST SINGLE VIEW dated 01/05/2012 FINDINGS: Lines: None. Lungs: No evidence of edema or pneumonia. Pleural: No significant pleural effusions or pneumothorax. Cardiac: Cardiomegaly. Bones: No acute fractures. Other: Sternotomy. IMPRESSION: No acute cardiopulmonary disease.
[2021-11-28 11:18] LABS: BUN Blood Urea Nitrogen 6 mg/dL (7-18); Bicarbonate 29 mmol/L (21-32); Glucose Level 124 mg/dL (74-106); NT PRO-BNP 25 pg/mL (<125); Potassium 4.1 mmol/L (3.5-5.1); Sodium Level 139 mmol/L (136-145); Troponin High Sensitivity 8.4 pg/mL (<58.9)
[2021-11-28] MEDS ORDERED: ASPIRIN 81 MG CHEWABLE TABLET ONE (11:25)
--- NOTE | 2021-11-28 12:00 | EDPHYS ---
Physician Documentation [facility] [place] Name: Joey Ortega Age: 41 yrs Sex: Male : 1980 Arrival Date: 11/28/2021 Time: 10:28 Bed 13 Private MD: ED Physician Selvin Duarte HPI: 11/28 11:54 This 41 yrs old Male presents to ER via Ambulatory with complaints of Chest Pain, kb Shortness Of Breath. 11:54 The patient or guardian reports chest pain that is located primarily in the substernal kb area, anterior chest wall, right. Onset: at 10:06. The pain does not radiate. Associated signs and symptoms: Pertinent positives: shortness of breath. The chest pain is described as a pressure, squeezing. Duration: The patient or guardian reports a single episode, that is now resolved. Modifying factors: The symptoms are alleviated by NTG, X2. Severity of pain: At its worst the pain was moderate in the emergency department the pain has resolved. The patient has experienced similar episodes in the past, a few times. The patient has not recently seen a physician. Historical: - Allergies: 10:31 No Known Allergies; jd3 - Home Meds: 10:31 metoprolol succinate oral [Active]; aspirin 81 mg Oral tab [Active]; Lisinopril Oral jd3 [Active]; Simvastatin Oral [Active]; clopidogrel oral [Active]; - PMHx: 10:31 Hypertensive disorder; HI; jd3 - PSHx: 10:31 2 stents; Coronary artery bypass graft; jd3 - Immunization history:: Adult Immunizations up to date, Client reports having NOT received the Covid vaccine. Flu vaccine status is unknown. - Social history:: Smoking status: Patient/guardian denies using tobacco, Stopped _ months ago 2. ROS: 11:24 Constitutional: Negative for fever, chills, and weight loss. kb 11:24 Cardiovascular: Positive for chest pain, Negative for edema, orthopnea, palpitations, paroxysmal nocturnal dyspnea. 11:24 Respiratory: Positive for shortness of breath. 11:24 All other systems are negative. Exam: 11:23 Constitutional: This is a well developed, well nourished patient who is awake, alert, kb and in no acute distress. Head/Face: Normocephalic, atraumatic. ENT: Moist Mucous membranes Cardiovascular: Regular rate and rhythm with a normal S1 and S2. No gallops, murmurs, or rubs. No pulse deficits. Respiratory: Respirations even and unlabored. No increased work of breathing. Talking in full sentences Skin: Warm, dry with normal turgor. Normal color. MS/ Extremity: Pulses equal, no cyanosis. Neurovascular intact. Full, normal range of motion. Neuro: Awake and alert, GCS 15, oriented to person, place, time, and situation. Moves all extremities. Normal gait. Psych: Awake, alert, with orientation to person, place and time. Behavior, mood, and affect are within normal limits. 11:23 ECG was reviewed by the Attending Physician. Vital Signs: 10:33 BP 158 / 98; Pulse 80; Resp 19 S; Temp 98.8(TE); Pulse Ox 100% on R/A; Weight 111.13 kg jd3 (R); Height 6 ft. 3 in. (190.50 cm) (R); Pain 0/10; 11:36 BP 116 / 90; Pulse 78; Resp 13; Pulse Ox 98% on R/A; vg1 10:33 Body Mass Index 30.62 (111.13 kg, 190.50 cm) jd3 MDM: 10:48 Patient medically screened. kb 11:24 Data reviewed: vital signs, nurses notes. Data interpreted: Pulse oximetry: on room air kb is 100 %. Interpretation: normal. 11:54 Counseling: I had a detailed discussion with the patient and/or guardian regarding: the kb historical points, exam findings, and any diagnostic results supporting the discharge/admit diagnosis, lab results, radiology results, the need for further work-up and treatment in the hospital. 11:58 HEART Score: History: Highly Suspicious (2), ECG: Normal (0), Age: < or = 45 years (0), kb Risk Factors: 1 or 2 risk factors (1), Troponin: < or = 1 x Normal Limit (0). The patient was given aspirin in the Emergency Department. 11:59 Physician consultation: ELBA Blanco contacted for admission. Will see pt in ED. kb 13:31 ED course: Pt was seen by Dr Ledesma who recommended discharge with outpatient follow kb up. . 11/28 10:33 Order name: Basic Metabolic Panel; Complete Time: 11:20 kb 04/06 10:33 Order name: CBC with Diff; Complete Time: 11:12 kb 11/28 10:33 Order name: D-Dimer; Complete Time: 13:15 kb 11/28 10:33 Order name: NT PRO-BNP; Complete Time: 11:20 kb 11/28 10:33 Order name: Troponin HS; Complete Time: 11:20 kb 11/28 11:54 Order name: COVID-19 SARS RT PCR (Document "Date of Onset" if Symptomatic); Complete ap3 Time: 13:15 11/28 11:54 Order name: COVID-19 SARS RT PCR (Document "Date of Onset" if Symptomatic) kb 11/28 12:34 Order name: Basic Metabolic Panel EDMS 11/28 12:34 Order name: CBC with Automated Diff EDMS 11/28 12:40 Order name: Troponin High Sensitivity EDMS 11/28 12:40 Order name: Troponin High Sensitivity EDMS 11/28 10:33 Order name: XRAY Chest (1 view); Complete Time: 11:16 kb 11/28 10:33 Order name: EKG; Complete Time: 10:34 kb 11/28 10:33 Order name: Cardiac monitoring; Complete Time: 11:17 kb 11/28 10:33 Order name: EKG - Nurse/Tech; Complete Time: 11:17 kb 11/28 10:33 Order name: IV Saline Lock; Complete Time: 11:17 kb 11/28 10:33 Order name: Labs collected and sent; Complete Time: 11:17 kb 11/28 10:33 Order name: O2 Per Protocol; Complete Time: 11:17 kb 11/28 10:33 Order name: O2 Sat Monitoring; Complete Time: 11:17 kb 11/28 12:34 Order name: Heart Healthy EDMS 11/28 13:15 Order name: EKG; Complete Time: 13:15 kb 11/28 13:15 Order name: EKG - Nurse/Tech; Complete Time: 13:23 kb 11/28 13:15 Order name: Troponin High Sensitivity kb 11/28 13:28 Order name: Diet Heart Healthy; Complete Time: 13:28 bd 11/28 13:48 Order name: Troponin High Sensitivity; Complete Time: 13:49 EDMS EC:23 Rate is 84 beats/min. Rhythm is regular. QRS [place] is Normal. [place] interval is normal at kb 168 msec. QRS interval is normal at 114 msec. QT interval is normal at 376 msec. Administered Medications: 11:29 Drug: Aspirin Chewable Tablet 162 mg Route: PO; vg1 12:30 Follow up: Response: No adverse reaction vg1 Disposition: 14:14 Co-signature as Attending Physician, Selvin Duarte MD I agree with the assessment and kdr plan of care. Disposition Summary: 11/28/21 13:50 Discharge Ordered Location: Home(11/28/21 13:50) kb Condition: Stable(11/28/21 13:50) kb Diagnosis - Chest pain, unspecified(11/28/21 13:50) kb Followup: kb - With: Emergency Department - When: As needed - Reason: Worsening of condition Followup: kb - With: Private Physician - When: 2 - 3 days - Reason: Recheck today's complaints, Continuance of care, Re-evaluation by your physician Discharge Instructions: - Discharge Summary Sheet kb - Nonspecific Chest Pain, Adult, [id number] kb Forms: - Medication Reconciliation Form kb - Thank You Letter kb - Antibiotic Education kb - Prescription Opioid Use kb Signatures: Dispatcher [employer] EDMS Katerina Day, SAND TECHNICIAN-C SAND TECHNICIAN-Selvin Alonzo MD MD kdr Davies, Jonathon RN RN Leighann Uribe RN RN vg1 Corrections: (The following items were deleted from the chart) 13:49 12:00 Observation kb kb 13:49 12:00 Yuly Garciasirena kb kb 13:49 12:00 Telemetry/MedSurg (observation) kb kb 13:49 12:00 Stable kb kb 13:49 12:00 new kb kb 13:49 12:00 are unchanged kb kb 13:49 12:00 Standard kb kb 13:49 12:00 kb kb 13:49 12:00 Chest pain, unspecified kb kb
--- NOTE | 2021-11-28 12:00 | ER ---
Nurse's Notes [facility] Name: Joey Ortega Age: 41 yrs Sex: Male : 1980 Arrival Date: 11/28/2021 Time: 10:28 Bed 13 Private MD: Diagnosis: Chest pain, unspecified Presentation: 11/28 10:29 Chief complaint: Patient states: "I am having chest pains and shortness of breath. I jd3 took 1 nitro. the nitro seemed like it helped.". Coronavirus screen: At this time, the client does not indicate any symptoms associated with coronavirus-19. Ebola Screen: No symptoms or risks identified at this time. Initial Sepsis Screen: Does the patient meet any 2 criteria? No. Patient's initial sepsis screen is negative. Does the patient have a suspected source of infection? No. Patient's initial sepsis screen is negative. Risk Assessment: Do you want to hurt yourself or someone else? Patient reports no desire to harm self or others. Onset of symptoms was November 28, 2021. 10:29 Method Of Arrival: Ambulatory jd3 10:29 Acuity: RANDY 3 jd3 Triage Assessment: 10:49 General: Appears in no apparent distress. comfortable, Behavior is calm, cooperative, jd3 appropriate for age, anxious. Pain: Complains of pain in chest Quality of pain is described as pressure. EENT: No signs and/or symptoms were reported regarding the EENT system. Neuro: Level of Consciousness is awake, alert, obeys commands, Oriented to person, place, time, situation. Cardiovascular: Heart tones S1 S2 present Capillary refill < 3 seconds Patient's skin is warm and dry. Rhythm is regular. Respiratory: Airway is patent Respiratory effort is even, unlabored, Respiratory pattern is regular, symmetrical, Denies cough, shortness of breath. GI: No signs and/or symptoms were reported involving the gastrointestinal system. : No signs and/or symptoms were reported regarding the genitourinary system. Derm: Skin is intact, Skin is dry, Skin is normal, Skin temperature is warm. Musculoskeletal: Circulation, motion, and sensation intact. Range of motion: intact in all extremities. Historical: - Allergies: 10:31 No Known Allergies; jd3 - Home Meds: 10:31 metoprolol succinate oral [Active]; aspirin 81 mg Oral tab [Active]; Lisinopril Oral jd3 [Active]; Simvastatin Oral [Active]; clopidogrel oral [Active]; - PMHx: 10:31 Hypertensive disorder; SD; jd3 - PSHx: 10:31 2 stents; Coronary artery bypass graft; jd3 - Immunization history:: Adult Immunizations up to date, Client reports having NOT received the Covid vaccine. Flu vaccine status is unknown. - Social history:: Smoking status: Patient/guardian denies using tobacco, Stopped _ months ago 2. Screenin:36 Abuse screen: Denies threats or abuse. Nutritional screening: No deficits noted. vg1 Tuberculosis screening: No symptoms or risk factors identified. Fall Risk No fall in past 12 months (0 pts). No secondary diagnosis (0 pts). IV access (20 points). Ambulatory Aid- None/Bed Rest/Nurse Assist (0 pts). Gait- Normal/Bed Rest/Wheelchair (0 pts) Mental Status- Oriented to own ability (0 pts). Total George Fall Scale indicates No Risk (0-24 pts). Assessment: 11:20 General: Appears in no apparent distress. comfortable, Behavior is calm, cooperative. vg1 Pain: Complains of pain in chest Pain radiates to right arm Pain currently is 0 out of 10 on a pain scale. at worst was 8 out of 10 on a pain scale. Pain began pt stated today at 1006. Neuro: Level of Consciousness is awake, alert, obeys commands, Oriented to person, place, time, situation, Denies headache. Cardiovascular: Patient's skin is warm and dry. Respiratory: Airway is patent Respiratory effort is even, unlabored. GI: Abdomen is flat, non-distended, Reports nausea, Patient currently denies vomiting. : No signs and/or symptoms were reported regarding the genitourinary system. EENT: No signs and/or symptoms were reported regarding the EENT system. Derm: Skin is intact, is healthy with good turgor. Musculoskeletal: Circulation, motion, and sensation intact. 11:20 Reassessment: Pt states took one Nitro at 1006 and 2 aspirin SOCIAL SERVICE TECHNICIAN; also stated took one vg1 nitro in Lobby around 1030 after completion of triage. Denies SOB or CP at this time. Vital Signs: 10:33 BP 158 / 98; Pulse 80; Resp 19 S; Temp 98.8(TE); Pulse Ox 100% on R/A; Weight 111.13 kg jd3 (R); Height 6 ft. 3 in. (190.50 cm) (R); Pain 0/10; 11:36 BP 116 / 90; Pulse 78; Resp 13; Pulse Ox 98% on R/A; vg1 10:33 Body Mass Index 30.62 (111.13 kg, 190.50 cm) jd3 ED Course: 10:28 Patient arrived in ED. as 10:30 Triage completed. jd3 10:33 Arm band placed on. EKG completed in triage. Results shown to MD. jd3 10:41 Katerina Day FNP-C is PHCP. kb 10:41 Selvin Duarte MD is Attending Physician. kb 10:48 Inserted saline lock: 20 gauge in right antecubital area, using aseptic technique. jd3 Blood collected. placed by MONIQUE Jorge 10:51 Patient placed in waiting room, in view of staff members, Patient notified of wait time.jd3 11:10 XRAY Chest (1 view) In Process Unspecified. EDMS 11:17 Leighann Hadley, RN is Primary Nurse. vg1 11:36 Patient has correct armband on for positive identification. Placed in gown. Bed in low vg1 position. Call light in reach. Side rails up X 1. groundwater monitoring technician on. Pulse ox on. NIBP on. 11:36 Patient maintains SpO2 saturation greater than 95% on room air. vg1 11:59 Heron Garcia MD is Hospitalizing Provider. kb 13:23 Troponin High Sensitivity Sent. ap3 14:03 No provider procedures requiring assistance completed. IV discontinued, intact, ap3 bleeding controlled, No redness/swelling at site. Pressure dressing applied. Administered Medications: 11:29 Drug: Aspirin Chewable Tablet 162 mg Route: PO; vg1 12:30 Follow up: Response: No adverse reaction vg1 Outcome: 12:00 Decision to Hospitalize by Provider. kb 13:50 Discharge ordered by . kb 14:03 Discharged to home ambulatory. ap3 14:03 Condition: good 14:03 Discharge instructions given to patient, Instructed on discharge instructions, follow up and referral plans. Demonstrated understanding of instructions, follow-up care. 14:03 Patient left the ED. ap3 Signatures: Dispatcher [employer] EDMS Shay Katerina, GEOPHYSICAL E LOGGER-C GEOPHYSICAL E LOGGER-Nelly Shah Jonathon, RN RN jd3 Kelsi Huizar RN RN ap3 Leighann Hadley RN RN vg1
[2021-11-28] MEDS ORDERED: NITROGLYCERIN 0.4 MG/TAB SL PRN (12:28)
[2021-11-28] MEDS ORDERED: ACETAMINOPHEN 500 MG TAB PO PRN (12:28)
[2021-11-28] MEDS ORDERED: ONDANSETRON 4 MG/2 ML VIAL IV PRN (12:34)
[2021-11-28] MEDS ORDERED: HYDROCODONE/APAP 5/325 MG TAB PO PRN (12:36)
[2021-11-28] MEDS ORDERED: ZOLPIDEM TARTRATE 5 MG TABLET PO PRN (12:41)
--- NOTE | 2021-11-28 13:09 | P.CNS ---
Date of Consult: 11/28/21 Reason for Consult: Chest pain Requesting Physician: Katerina Day History of Present Illness: Patient is a 41-year-old male with a past medical history significant for LA, CAD with stents, hypertension, HLD, obesity who presents with complaint of chest pain onset today while driving. Patient indicated that chest pain is located in the substernal chest area more towards the right chest wall. Patient rated pain as 8/10 in severity and described pain as a squeezing in quality. Patient indicated that chest pain radiates to his right elbow. Patient reported associated signs and symptoms of nausea, bilateral fingers tingling and shortness of breath. Patient denies any other signs and symptoms. Symptoms are aggravated or relieved by nothing. Patient decided to present to the hospital for medical evaluation. Of note, patient reported that he took nitroglycerin tablet enroute to the ER and another tablet while in the ER. Patient dictated the chest pain resolved after the second tablet of nitroglycerin Allergies No Known Allergies Allergy (Verified 09/14/21 23:15) Home medications list reviewed: Yes Home Medications: Atorvastatin Calcium [Lipitor] 40 mg PO BEDTIME tab 09/15/21 Clopidogrel Bisulfate [Plavix*] 1 tab PO DAILY 09/15/21 Famotidine [Pepcid*] 20 mg PO BID #40 tab 09/15/21 Lisinopril [Zestril] 1 tab PO DAILY 09/15/21 Metoprolol Succinate 25 mg PO DAILY #30 tab.er.24h 09/15/21 Nitroglycerin [Nitrostat*] 1 tab SL SEECOM 09/15/21 - Past Medical/Surgical History Diabetic: No -: CAD with prior CABG x1 vessel and prior stents -: Hypertension -: Hyperlipidemia -: CABG x1 vessel with 2 prior stents, 2013 Psychosocial/ Personal History: Patient is - Social History Smoking Status: Former smoker Alcohol use: No CD- Drugs: No Caffeine use: Yes Place of Residence: Home Review of Systems General: Unremarkable Eyes: Unremarkable ENT: Unremarkable Respiratory: Shortness of Breath Cardiovascular: Chest Pain Gastrointestinal: Nausea Genitourinary: Unremarkable Musculoskeletal: Unremarkable Neurological: Other (Numbness in nnilateral fingers ) Lymphatics: Unremarkable Physical Examination General: Alert, Oriented x3 HEENT: Normocephalic Neck: Supple, 2+ carotid pulse no bruit, JVD not distended Respiratory: Clear to auscultation bilaterally, Normal air movement Cardiovascular: Normal pulses, Regular rate/rhythm Capillary refill: <2 Seconds Gastrointestinal: Normal bowel sounds, Soft and benign Musculoskeletal: No clubbing, No swelling, No contractures, No tenderness Integumentary: No rashes, No breakdown, No tenderness/swelling Neurological: Normal gait, Normal speech, Normal strength at 5/5 x4 extr Lymphatics: No axilla or inguinal lymphadenopathy Laboratory Data (last 24 hrs) 11/28/21 10:46: WBC 6.0, Hgb 16.9, Hct 49.5 H, Plt Count 230 11/28/21 10:46: Sodium 139, Potassium 4.1, BUN 6 L, Creatinine 0.91, Glucose 124 H Conclusions/Impression: --Chest pain. Likely atypical. Serial troponins negative so far. Telemetry to monitor for any significant arrhythmia.. Echocardiogram pending. Cardiology consulted. Continue aspirin, Plavix and statin. Will await further recommendation from patient portal concierge. --Hypertension. Stable. Continue home medications. --Hyperlipidemia. Continue statin. --History of LA, CABG, CAD with stent. Continue aspirin, Plavix and statin. --Nausea. Antiemetics on board. --Acute pain. We will manage pain with current pain medication regimen. --Obesity. Likely secondary to excess calories intake. Patient counseled on diet and exercise therapy. --DVT prophylaxis with Lovenox subQ. Discharge disposition. Patient seen by cardiology. Cleared for discharge. Restaurant Bartender recommends patient double his metoprolol dose. Patient instructed to follow-up with his PCP and patient portal concierge outpatient. ER AIRLINE CUSTOMER SERVICE AGENT notified of patient portal concierge recommendations. ER AIRLINE CUSTOMER SERVICE AGENT to obtain another troponin level and EKG before discharging patient. Physician Review: Patient Assessed, Agree with Above Assessment and Plan Critical Care: No
[2021-11-28 13:16] VITALS: O2SAT 98
[2021-11-28] MEDS ORDERED: METOPROLOL TAR 25 MG TAB PO SCH (18:00)
[2021-11-28] MEDS ORDERED: FAMOTIDINE 20 MG TAB PO SCH (21:00)
[2021-11-28] MEDS ORDERED: ATORVASTATIN 40 MG TAB PO SCH (21:00)
[2021-11-28 23:12] VITALS: TEMP 98.8
[2021-11-28 23:14] VITALS: BP 116/90
[2021-11-29] MEDS ORDERED: CLOPIDOGREL 75 MG TABLET PO SCH (09:00)
[2021-11-29] MEDS ORDERED: lisinopriL 5 MG TAB PO SCH (09:00)
[2021-11-29] MEDS ORDERED: ENOXAPARIN 40 MG/0.4 ML SQ SCH (09:00)
[2021-11-29] MEDS ORDERED: ASPIRIN EC 81 MG TAB PO SCH (09:00)
--- NOTE | 2021-11-29 14:14 | CON ---
Date of Consultation: 11/28/2021 Reason For Consultation: Chest pain. History Of Present Illness: Mr. Ortega is a 41-year-old unfortunate male. He has had a history of CABG and stent. Has a history of hypertension and dyslipidemia. [facility]. Apparently, the last time, they did a stress test on him and they told him not to have a cathete rization unless it is absolutely necessary because of tortuosity of his blood vessels and the complex ity of his anatomy. He comes in with chest pain, midsternal, with some shortness of breath, but no n ausea, vomiting, diaphoresis, PND, orthopnea, pedal edema, palpitation, or syncope. EKG was unremark able. Chest x-ray was unremarkable. Troponin was negative. BNP was negative. He is pain free now. Past Medical History: As stated above. Allergies: NONE. Review of Systems: Negative. Social History: Negative. Family History: Negative. Medications: Include metoprolol, aspirin, Plavix, Zocor, and lisinopril. Physical Examination: Was done by Dr. Dumont and was unremarkable. His vital signs are stable. He was afebrile. He was i n sinus rhythm. Diagnostic Data: All within normal limits. Impression And Plan: Stable angina and the patient with history of coronary artery disease, status p ost coronary artery bypass graft and stents. He follows up at the [facility] on a regular basis. Rhea lei has ruled out for an LA. His hypertension is well controlled. I will send him home and I will hav e him double his metoprolol dose and follow up with the [facility] in the future. Again, the patient was zulma d not to have a catheterization unless this is absolutely necessary secondary to the complexity of md s anatomy. I certainly would prefer do the catheterization in [place] that needs to be. Since he has ruled out for an LA, I am comfortable with him doubling his metoprolol dose and going ho me. RAMON/ANGEL Voice ID: [id number] Report ID: [id number]
== END 2021-11-28 14:03 | disposition home or self-care (01) ==
LOC: ER 10:27 → UNDOADMOB 12:26 → ERHOLD 12:26
DX: R07.9 Chest pain, unspecified (principal); R06.02 Shortness of breath; R11.0 Nausea; E78.5 Hyperlipidemia, unspecified; I10 Essential (primary) hypertension; I25.2 Old myocardial infarction; E66.9 Obesity, unspecified; Z68.30 Body mass index [BMI] 30.0-30.9, adult; Z95.1 Presence of aortocoronary bypass graft; Z79.01 Long term (current) use of anticoagulants; Z79.82 Long term (current) use of aspirin; Z20.822 Contact with and (suspected) exposure to COVID-19; Z87.891 Personal history of nicotine dependence; Z95.818 Presence of other cardiac implants and grafts
CPT/HCPCS: 93005 ×2; 85025; 80048; 36415; 85379; 84484 ×2; 83880; 71045; 99285; U0003